=== PATIENT | female | born 1935 | race Caucasian/White ===

== ENCOUNTER 2018-10-20 11:39 | Observation (INO) | payer MEDICARE, BC ==
[2018-10-20] MEDS ORDERED: HYDROmorphone 1 MG/ML Syringe IVPUSH ONE (12:19)
[2018-10-20 12:47] LABS: ANION GAP 14.7 mmol/L (10-20)
[2018-10-20] MEDS ORDERED: methylPREDNISolone Sodium Succinate 125 MG/2 ML SDV IVPUSH ONE (13:47)
[2018-10-20] MEDS: Calcium Carbonate/Vitamin D3 1250 MG-200 Unit Tab PO SCH (18:05)
[2018-10-20] MEDS ORDERED: Albuterol 0.083% 2.5 MG/3 ML Neb Soln INH PRN (20:00)
[2018-10-20] MEDS: Metoprolol Tartrate 50 MG Tab PO SCH ×2 (20:08→20:30)
[2018-10-20] MEDS: Acetaminophen/HYDROcodone 325-5 MG Tab PO PRN (20:11)
[2018-10-20] MEDS: Dextran 70/Hypromellose/PF Ophth Soln 0.9 ML UD EYEBOTH SCH (20:13)
[2018-10-20] MEDS: Budesonide 0.5 MG/2 ML Neb Susp NEB SCH (20:21)
[2018-10-20] MEDS: Ipratropium 0.02% 0.5 MG/2.5 ML Neb Soln NEB SCH (20:21)
[2018-10-20] MEDS: Arformoterol 15 MCG/2 ML Neb Soln NEB SCH (20:21)
[2018-10-20] MEDS ORDERED: Warfarin 2.5 MG Tab PO ONE (20:30)
[2018-10-21] MEDS: Acetaminophen/HYDROcodone 325-5 MG Tab PO PRN (01:39)
[2018-10-21] MEDS: Budesonide 0.5 MG/2 ML Neb Susp NEB SCH (06:57)
[2018-10-21] MEDS: Ipratropium 0.02% 0.5 MG/2.5 ML Neb Soln NEB SCH (06:57)
[2018-10-21] MEDS: Arformoterol 15 MCG/2 ML Neb Soln NEB SCH (06:57)
[2018-10-21] MEDS ORDERED: Omeprazole 20 MG Cap.CR PO SCH (07:00)
[2018-10-21] MEDS: Calcium Carbonate/Vitamin D3 1250 MG-200 Unit Tab PO SCH (07:20)
[2018-10-21] MEDS: Dextran 70/Hypromellose/PF Ophth Soln 0.9 ML UD EYEBOTH SCH (07:22)
[2018-10-21] MEDS: Metoprolol Tartrate 50 MG Tab PO SCH (07:22)
[2018-10-21] MEDS ORDERED: Furosemide 20 MG Tab PO SCH (08:00)
[2018-10-21] MEDS ORDERED: predniSONE 5 MG Tab PO SCH (08:00)
[2018-10-21] MEDS ORDERED: Amiodarone 200 MG Tab PO SCH (08:00)
[2018-10-21] MEDS ORDERED: Aspirin 81 MG Tab.EC PO SCH (08:00)
[2018-10-21 11:29] VITALS: BP 118/36
[2018-10-21] MEDS ORDERED: HYDROmorphone 1 MG/ML Syringe IVPUSH PRN (12:47)
[2018-10-21] MEDS ORDERED: Phytonadione 100 MCG Tab PO SCH (13:15)
[2018-10-21] MEDS ORDERED: Take Home: Acetaminophen/oxyCODONE 325-5 MG, 5 Tab Pack PO ONE (13:37)
[2018-10-21] MEDS ORDERED: Warfarin 2.5 MG Tab PO SCH (20:00)
[2018-10-22] MEDS ORDERED: Warfarin 2.5 MG Tab PO SCH (20:00)
[2018-10-22] MEDS ORDERED: Simvastatin 10 MG Tab PO SCH (20:00)
--- NOTE | 2018-10-25 08:49 | EDM.PDOC ---
ED HPI GENERAL MEDICAL PROBLEM - General Chief Complaint: Back Pain or Injury Stated Complaint: ER VISIT Time Seen by Provider: 10/20/18 11:50 Source of Information: Reports: Patient, EMS History Limitations: Reports: No Limitations - History of Present Illness INITIAL COMMENTS - FREE TEXT/NARRATIVE: Patient comes in by EMS. She says that she has been having worsening back pain for the past eight days. She does have an appointment with Dr. Trent on . The patient comes in accompanied by her neighbor. I did look into her medical history and the patient has been on fentanyl patches before and also oxycodone. She is no longer on those medications currently. Patient is a chronic smoker. She also has had back pain before. Patient also seems to be quite exhausted. I will put her in extended stay in observation. Please use this note as a admitting document. I also gave the patient a shot of Solu- Medrol. I did see her the next day and she was ready to be discharged. I did check her pro time and it was over seven. I did talk to Dr. Mayfield and it was agreed that we were going to give her oral vitamin K to reverse her Coumadin and hold off on the Coumadin until she sees Dr. Trent. Patient has not had her pro time checked in a while. She had seen Dr. Trent previously earlier this month and a basic metabolic panel was recommended so did have that drawn. I did give the patient hydrocodone to bridge her to see Dr. Trent. We did double her vitamin K for Monday on her departure. She will continue her vitamin K and hold off on her Coumadin until she sees Dr. Trent. 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 Lower Back Pain Score (Numeric/FACES): 3 - Related Data Allergies Allergy/AdvReac Type Severity Reaction Status Date / Time celecoxib [From Celebrex] AdvReac Nausea Verified 10/20/18 12:08 Home Meds: Home Meds Calcium Carbonate/Vitamin D3 [Calcium 600 + D Tablet] 1 each PO BIDMEALS [History] Magnesium Oxide [Magnesium] 500 mg PO BID 08/07/15 [History] Metoprolol Tartrate [Lopressor] 50 mg PO BID 08/07/15 [History] Simvastatin [Zocor] 20 mg PO MOWEFR 08/07/15 [History] predniSONE [Prednisone] 5 mg PO DAILY 08/07/15 [History] Arformoterol [Brovana] 15 mcg NEB BID 12/24/15 [History] Budesonide [Pulmicort] 0.5 mg NEB BID 12/24/15 [History] Ipratropium [Atrovent] 0.5 mg NEB BID 12/24/15 [History] Warfarin [Coumadin] 2.5 mg PO ASDIRECTED 12/24/15 [History] Amiodarone [Cordarone] 200 mg PO DAILY 01/12/16 [History] Aspirin [Halfprin] 81 mg PO BRK 01/12/16 [History] Omeprazole [Prilosec] 20 mg PO DAILY 01/12/16 [History] Albuterol Sulfate [Proventil Hfa] 2 puff IH Q4H PRN 10/20/18 [History] Carboxymethyl/Glycerin/Poly80 [Refresh Optive Advanced Drops] 1 drop EYEBOTH BID 10/20/18 [History] Furosemide [Lasix] 30 mg PO DAILY 10/20/18 [History] Phytonadione [Vitamin K] 200 mcg PO DAILY 10/20/18 [History] Hydrocodone/Acetaminophen [Lorcet 5-325 mg Tablet] 1 - 2 tab PO Q4HR PRN #20 tablet 10/21/18 [Rx] Past Medical History HEENT History: Reports: Cataract Cardiovascular History: Reports: Afib, Heart Failure, High Cholesterol, Hypertension, Pulmonary Hypertension, PVD, Other (See Below) Other Cardiovascular History: Paroxysmal SVT. Peripheral artery disease. Valvular disease Respiratory History: Reports: COPD, Pneumonia, Recurrent Gastrointestinal History: Reports: Colon Polyp, Diverticulosis, Hiatal Hernia Genitourinary History: Reports: Urinary Incontinence, Other (See Below) Other Genitourinary History: Stage 3 Kidney disease Musculoskeletal History: Reports: RA Hematologic History: Reports: Anemia, Other (See Below) Other Hematologic History: Hypomagnesia Oncologic (Cancer) History: Reports: Bladder, Colon, Renal - Past Surgical History HEENT Surgical History: Reports: Cataract Surgery, Tonsillectomy, Other (See Below) Other HEENT Surgeries/Procedures: Chronic dry eyes. Posterior vitreous detachment GI Surgical History: Reports: Colonoscopy Other GI Surgeries/Procedures: ileostomy Social & Family History - Family History Family Medical History: Noncontributory - Tobacco Use Smoking Status *Q: Current Every Day Smoker Years of Tobacco use: 63 Packs/Tins Daily: 0.5 Second Hand Smoke Exposure: Yes - Caffeine Use Caffeine Use: Reports: Coffee, Soda - Alcohol Use Days Per Week of Alcohol Use: 1 Number of Drinks Per Day: 1 Total Drinks Per Week: 1 - Recreational Drug Use Recreational Drug Use: No ED ROS GENERAL - Review of Systems Review Of Systems: ROS reveals no pertinent complaints other than HPI. ED EXAM, UPPER BACK/NECK PAIN - Physical Exam Exam: See Below Exam Limited By: Other (Patient appears to be older than her stated age.) General Appearance: Alert, Moderate Distress, Severe Distress Cardiovascular/Respiratory: Regular Rate, Rhythm, No M/R/G, Normal Peripheral Pulses, No JVD, Normal Breath Sounds, No Respiratory Distress Back Exam: Other (Pain into the lower thoracic and upper lumbar. Limited range of motion secondary to her perception of pain. No pain going down the legs. Doesn't to be centralized. No history of trauma. No ecchymosis.) Psychiatric: Normal Affect Skin Exam: Normal Color, Warm/Dry Course - Vital Signs Last Recorded V/S: Last Vital Signs Temp 37.1 C 10/21/18 10:00 Pulse 59 L 10/21/18 10:00 Resp 16 10/21/18 10:00 BP 118/36 L 10/21/18 10:00 Pulse Ox 94 L 10/21/18 10:00 - Orders/Labs/Meds Labs: Laboratory Tests 10/20/18 10/20/18 10/20/18 Range/Units 12:19 12:23 12:23 WBC 8.3 (4.0-10.0) x10^3/uL RBC 4.76 (4.00-5.50) x10^6/uL Hgb 12.9 (12.0-16.0) g/dL Hct 41.2 (33.0-47.0) % MCV 86.6 (78.0-93.0) fL MCH 27.1 (26.0-32.0) pg MCHC 31.3 L (32.0-36.0) g/dL RDW Coeff of Caroline 16.7 H (10.0-15.0) % Plt Count 310 (130-400) x10^3/uL Neut % (Auto) 86.0 H (50.0-80.0) % Lymph % (Auto) 10.0 L (25.0-50.0) % [place] % (Auto) 3.5 (2.0-11.0) % Eos % (Auto) 0.4 (0.0-4.0) % Baso % (Auto) 0.1 L (0.2-1.2) % Sodium 142 (136-145) mmol/L Potassium 4.7 (3.5-5.1) mmol/L Chloride 104 (98-107) mmol/L Carbon Dioxide 28 (21-32) mmol/L Anion Gap 14.7 (10-20) mmol/L BUN 33 H (7-18) mg/dL Creatinine 1.9 H (0.55-1.02) mg/dL Est Cr Clr Drug Dosing 17.23 mL/min Estimated GFR (MDRD) 25 Glucose 93 (74-106) mg/dL Calcium 9.3 (8.5-10.1) mg/dL NT-Pro-B Natriuret Pep (<=450) pg/mL Urine Color Yellow (YELLOW) Urine Appearance Clear (CLEAR) Urine pH 6.0 (5.0-8.0) Ur Specific Olivia 1.015 Urine Protein Negative (NEGATIVE) mg/dL Urine Glucose (UA) Negative (NEGATIVE) mg/dL Urine Ketones Negative (NEGATIVE) mg/dL Urine Occult Blood Moderate H (NEGATIVE) Urine Nitrite Negative (NEGATIVE) Urine Bilirubin Negative (NEGATIVE) Urine Urobilinogen 0.2 (0.2) EU/dL Ur Leukocyte Esterase Negative (NEGATIVE) Urine RBC 5-10 H (NOT SEEN) /HPF Urine WBC 0-5 (NOT SEEN) /HPF Ur Squamous Epith Cells Few H (NEGATIVE) /HPF Urine Bacteria Not seen (NEGATIVE) /HPF Urine Mucus Rare H (NEGATIVE) /LPF Urine Yeast (Budding) Not seen 10/20/18 Range/Units 12:23 WBC (4.0-10.0) x10^3/uL RBC (4.00-5.50) x10^6/uL Hgb (12.0-16.0) g/dL Hct (33.0-47.0) % MCV (78.0-93.0) fL MCH (26.0-32.0) pg MCHC (32.0-36.0) g/dL RDW Coeff of Caroline (10.0-15.0) % Plt Count (130-400) x10^3/uL Neut % (Auto) (50.0-80.0) % Lymph % (Auto) (25.0-50.0) % [place] % (Auto) (2.0-11.0) % Eos % (Auto) (0.0-4.0) % Baso % (Auto) (0.2-1.2) % Sodium (136-145) mmol/L Potassium (3.5-5.1) mmol/L Chloride (98-107) mmol/L Carbon Dioxide (21-32) mmol/L Anion Gap (10-20) mmol/L BUN (7-18) mg/dL Creatinine (0.55-1.02) mg/dL Est Cr Clr Drug Dosing mL/min Estimated GFR (MDRD) Glucose (74-106) mg/dL Calcium (8.5-10.1) mg/dL NT-Pro-B Natriuret Pep 1062 H (<=450) pg/mL Urine Color (YELLOW) Urine Appearance (CLEAR) Urine pH (5.0-8.0) Ur Specific Olivia Urine Protein (NEGATIVE) mg/dL Urine Glucose (UA) (NEGATIVE) mg/dL Urine Ketones (NEGATIVE) mg/dL Urine Occult Blood (NEGATIVE) Urine Nitrite (NEGATIVE) Urine Bilirubin (NEGATIVE) Urine Urobilinogen (0.2) EU/dL Ur Leukocyte Esterase (NEGATIVE) Urine RBC (NOT SEEN) /HPF Urine WBC (NOT SEEN) /HPF Ur Squamous Epith Cells (NEGATIVE) /HPF Urine Bacteria (NEGATIVE) /HPF Urine Mucus (NEGATIVE) /LPF Urine Yeast (Budding) Meds: Medications Discontinued Medications Generic Name Dose Route Start Last Admin Trade Name Freq PRN Reason Stop Dose Admin Hydrocodone Bitart/Acetaminophen 1 - 2 tab 10/20/18 16:26 10/21/18 01:39 Lacon 325-5 Mg PO 2 tab Q4H PRN Administration Pain Albuterol 2.5 mg 10/20/18 20:00 Proventil Neb Soln INH Q4H PRN Shortness of Breath Amiodarone HCl 200 mg 10/21/18 08:00 10/21/18 07:22 Cordarone PO 200 mg DAILY PEDRO LUIS Administration Arformoterol Tartrate 15 mcg 10/20/18 20:00 10/21/18 06:57 Brovana NEB 15 mcg BIDRT PEDRO LUIS Administration Artificial Tears 0 each 10/20/18 20:00 10/21/18 07:22 Tears Naturale Free EYEBOTH 1 each BID PEDRO LUIS Administration Aspirin 81 mg 10/21/18 08:00 10/21/18 07:22 Halfprin PO 81 mg BRK PEDRO LUIS Administration Budesonide 0.5 mg 10/20/18 20:00 10/21/18 06:57 Pulmicort NEB 0.5 mg BIDRT PEDRO LUIS Administration Calcium Carbonate 1 tab 10/20/18 18:00 10/21/18 07:20 Calcium Carbonate/Vitamin D 1250 Mg-200 Unit PO 1 tab BIDMEALS PEDRO LUIS Administration Furosemide 30 mg 10/21/18 08:00 10/21/18 07:20 Lasix PO 30 mg DAILY PEDRO LUIS Administration Hydromorphone HCl 0.5 mg 10/20/18 12:19 10/20/18 12:24 Dilaudid IVPUSH 10/20/18 12:20 0.5 mg ONETIME ONE Administration Hydromorphone HCl 0.5 mg 10/21/18 12:47 10/21/18 13:13 Dilaudid IVPUSH 0.5 mg Q4H PRN Administration Pain Ipratropium Mcmillan 0.5 mg 10/20/18 20:00 10/21/18 06:57 Atrovent NEB 0.5 mg BIDRT PEDRO LUIS Administration Methylprednisolone Sodium Succinate 125 mg 10/20/18 13:47 10/20/18 13:59 Solu-Medrol IVPUSH 10/20/18 13:48 125 mg ONETIME ONE Administration Metoprolol Tartrate 50 mg 10/20/18 20:00 10/21/18 07:22 Lopressor PO 50 mg BID PEDRO LUIS Administration Omeprazole 20 mg 10/21/18 07:00 10/21/18 06:57 Omeprazole PO 20 mg ACBREAKFAST PEDRO LUIS Administration Oxycodone/Acetaminophen 1 packet 10/21/18 13:37 Take Home: Acetamin/Oxycodon 325-5 Mg, 5 Pack PO 10/21/18 13:38 ONETIME ONE Phytonadione 10 mg 10/21/18 12:29 10/21/18 13:05 Aquamephyton SUBCUT 10/21/18 12:48 Not Given ONETIME ONE Phytonadione 400 mcg 10/21/18 13:15 10/21/18 13:13 Vitamin K PO 400 mcg DAILY PEDRO LUIS Administration Prednisone 5 mg 10/21/18 08:00 10/21/18 07:22 Prednisone PO 5 mg DAILY PEDRO LUIS Administration Simvastatin 20 mg 10/22/18 20:00 Zocor PO [email or web address] [email or web address] Warfarin Sodium 1.25 mg 10/21/18 20:00 Coumadin PO [email or web address] [email or web address] Warfarin Sodium 2.5 mg 10/22/18 20:00 Coumadin PO [email or web address] [email or web address] Warfarin Sodium 1.25 mg 10/20/18 20:30 10/20/18 20:28 Coumadin PO 10/20/18 20:31 1.25 mg ONETIME ONE Administration Departure - Departure Time of Disposition: 08:50 Disposition: Refer to Observation Condition: Fair Clinical Impression: Sprain of ligaments of thoracic spine Qualifiers: Encounter type: sequela Qualified Code(s): S23.3XXS - Sprain of ligaments of thoracic spine, sequela - Discharge Information *PRESCRIPTION DRUG MONITORING PROGRAM REVIEWED*: Yes *COPY OF PRESCRIPTION DRUG MONITORING REPORT IN PATIENT SHAKILA: No
--- NOTE | 2018-11-10 20:32 | PCM.DCSUM1 ---
Discharge Summary - Hospital Course HPI Initial Comments: The patient has had fentanyl patch in the past. She is currently not on any narcotics. She does have an appointment with her primary later this week. I will give her some hydrocodone for a bridge. The patient was also found to have high INR. She will hold off on her Coumadin until she sees her primary. She will have her INR drawn at that time. She does have a neighbor that is assisting her. The patient continues to smoke. - Discharge Data Discharge Date: 10/21/18 Discharge Disposition: Home, Self-Care 01 Condition: Fair - Patient Instructions Diet: Usual Diet as Tolerated Activity: As Tolerated Driving: Do Not Drive Showering/Bathing: May Shower - Discharge Plan *PRESCRIPTION DRUG MONITORING PROGRAM REVIEWED*: Yes *COPY OF PRESCRIPTION DRUG MONITORING REPORT IN PATIENT SHAKILA: No Home Medications: Home Meds Calcium Carbonate/Vitamin D3 [Calcium 600 + D Tablet] 1 each PO BIDMEALS [History] Metoprolol Tartrate [Lopressor] 50 mg PO BID 08/07/15 [History] Simvastatin [Zocor] 20 mg PO MOWEFR 08/07/15 [History] predniSONE [Prednisone] 5 mg PO DAILY 08/07/15 [History] Arformoterol [Brovana] 15 mcg NEB Q12H 12/24/15 [History] Budesonide [Pulmicort] 0.5 mg NEB BID 12/24/15 [History] Ipratropium [Atrovent] 0.5 mg NEB BID 12/24/15 [History] Warfarin [Coumadin] 1.25 mg PO MOWEFR@0800 12/24/15 [History] Amiodarone [Cordarone] 200 mg PO DAILY 01/12/16 [History] Aspirin [Halfprin] 81 mg PO DAILY 01/12/16 [History] Omeprazole [Prilosec] 20 mg PO DAILY 01/12/16 [History] Furosemide [Lasix] 30 mg PO DAILY 10/20/18 [History] Phytonadione [Vitamin K] 200 mcg PO DAILY 10/20/18 [History] Orphenadrine [Norflex] 100 mg PO BID PRN 11/05/18 [History] Dextran 70/Hypromellose/PF [Tears [place]aturale Free Drops] 1 each EYEBOTH BID [History] Lidocaine [Aspercreme] 1 each TP DAILY 11/07/18 [History] Magnesium Oxide [Magnesium] 400 mg PO DAILY 11/07/18 [History] Ondansetron [Zofran ODT] 4 mg PO Q6H PRN 11/07/18 [History] Remove Patch 1 ea TRDERM BEDTIME 11/07/18 [History] oxyCODONE 5 mg PO Q4H PRN 11/07/18 [History] Patient Handouts: Back Pain, Adult, [id number] Forms: ED Department Discharge Referrals: Luz Marc MD [Primary Care Provider] - - Discharge Summary/Plan Comment DC Time >30 min.: No - General Info Date of Service: 11/10/18 Functional Status: Reports: Other (The patient is tolerating her pain.) - Review of Systems General: Reports: Weakness (Some). Denies: Fever, Malaise, Chills Pulmonary: Reports: No Symptoms Cardiovascular: Reports: No Symptoms Gastrointestinal: Reports: No Symptoms Musculoskeletal: Reports: Back Pain (Acute on chronic. ) Neurological: Reports: No Symptoms Psychiatric: Reports: No Symptoms - Patient Data Vitals - Most Recent: Last Vital Signs Temp 37.1 C 10/21/18 10:00 Pulse 59 L 10/21/18 10:00 Resp 16 10/21/18 10:00 BP 118/36 L 10/21/18 10:00 Pulse Ox 94 L 10/21/18 10:00 Weight - Most Recent: 51.256 kg Med Orders - Current: Current Medications Discontinued Medications Hydrocodone Bitart/Acetaminophen ([place] 325-5 Mg) 1 - 2 tab PO Q4H PRN PRN Reason: Pain Last Admin: 10/21/18 01:39 Dose: 2 tab Albuterol (Proventil Neb Soln) 2.5 mg INH Q4H PRN PRN Reason: Shortness of Breath Amiodarone HCl (Cordarone) 200 mg PO DAILY [facility] Last Admin: 10/21/18 07:22 Dose: 200 mg Arformoterol Tartrate (Brov[place]) 15 mcg NEB BIDRT [facility] Last Admin: 10/21/18 06:57 Dose: 15 mcg Artificial Tears (Tears Naturale Free) 0 each EYEBOTH BID [facility] Last Admin: 10/21/18 07:22 Dose: 1 each Aspirin (Halfprin) 81 mg PO BRK [facility] Last Admin: 10/21/18 07:22 Dose: 81 mg Budesonide (Pulmicort) 0.5 mg NEB BIDRT [facility] Last Admin: 10/21/18 06:57 Dose: 0.5 mg Calcium Carbonate (Calcium Carbonate/Vitamin D 1250 Mg-200 Unit) 1 tab PO BIDMEALS [facility] Last Admin: 10/21/18 07:20 Dose: 1 tab Furosemide (Lasix) 30 mg PO DAILY [facility] Last Admin: 10/21/18 07:20 Dose: 30 mg Hydromorphone HCl (Dilaudid) 0.5 mg IVPUSH ONETIME ONE Stop: 10/20/18 12:20 Last Admin: 10/20/18 12:24 Dose: 0.5 mg Hydromorphone HCl (Dilaudid) 0.5 mg IVPUSH Q4H PRN PRN Reason: Pain Last Admin: 10/21/18 13:13 Dose: 0.5 mg Ipratropium [place] (Atrovent) 0.5 mg NEB BIDRT [facility] Last Admin: 10/21/18 06:57 Dose: 0.5 mg Methylprednisolone Sodium Succinate (Solu-Medrol) 125 mg IVPUSH ONETIME ONE Stop: 10/20/18 13:48 Last Admin: 10/20/18 13:59 Dose: 125 mg Metoprolol Tartrate (Lopressor) 50 mg PO BID [facility] Last Admin: 10/21/18 07:22 Dose: 50 mg Omeprazole (Omeprazole) 20 mg PO ACBREAKFAST [facility] Last Admin: 10/21/18 06:57 Dose: 20 mg Oxycodone/Acetaminophen (Take Home: Acetamin/Oxycodon 325-5 Mg, 5 Pack) 1 packet PO ONETIME ONE Stop: 10/21/18 13:38 Phytonadione ([place]phy[place]) 10 mg SUBCUT ONETIME ONE Stop: 10/21/18 12:48 Last Admin: 10/21/18 13:05 Dose: Not Given Phytonadione (Vitamin K) 400 mcg PO DAILY [facility] Last Admin: 10/21/18 13:13 Dose: 400 mcg Prednisone (Prednisone) 5 mg PO DAILY [facility] Last Admin: 10/21/18 07:22 Dose: 5 mg Simvastatin (Zocor) 20 mg PO [email or web address] [facility] Warfarin Sodium (Coumadin) 1.25 mg PO [email or web address] [facility] Warfarin Sodium (Coumadin) 2.5 mg PO [email or web address] [facility] Warfarin Sodium (Coumadin) 1.25 mg PO ONETIME ONE Stop: 10/20/18 20:31 Last Admin: 10/20/18 20:28 Dose: 1.25 mg - Exam General: Reports: Alert, Oriented Lungs: Reports: Clear to Auscultation Cardiovascular: Reports: Regular Rate, Regular Rhythm Extremities: Other (She does have thoracic and lumbar pain. ROM is limited per her perception of pain. No saddle parathesia. ). No: Normal Range of Motion *Q Meaningful Use (DIS) - VTE *Q VTE Mechanical Contraindications *Q: At Risk for Falls
== END 2018-10-21 13:45 | disposition home or self-care (01) ==
LOC: VM.ED 11:39 → INTOOBSV 13:25 → VM.MS 13:25
PROVIDERS: ADMIT Physician Assistant; ATTEND Physician Assistant
DX: M54.5 Low back pain (principal); R79.1 Abnormal coagulation profile; F17.200 Nicotine dependence, unspecified, uncomplicated; I13.0 Hypertensive heart and chronic kidney disease with heart failure and stage 1 through stage 4 chronic kidney disease, or unspecified chronic kidney disease; I50.9 Heart failure, unspecified; N18.3 Chronic kidney disease, stage 3 (moderate); J44.9 Chronic obstructive pulmonary disease, unspecified; Z79.01 Long term (current) use of anticoagulants; Z79.899 Other long term (current) drug therapy
CPT/HCPCS: 36415; 80048; 81001; 83880; 85025; 85610; 87086; 94640; 96374; 96375; 96376; 99220; 99285; A9270; G0378; J1170; J2930

== ENCOUNTER 2018-11-05 16:17 | Observation (INO) | payer MEDICARE, BC ==
--- NOTE | 2018-11-05 16:23 | EDM.PDOC ---
ED HPI GENERAL MEDICAL PROBLEM - General Chief Complaint: Back Pain or Injury Stated Complaint: Low Back Pain Time Seen by Provider: 11/05/18 16:22 Source of Information: Reports: Patient, EMS, EMS Notes Reviewed, Old Records, RN, RN Notes Reviewed History Limitations: Reports: No Limitations - History of Present Illness INITIAL COMMENTS - FREE TEXT/NARRATIVE: Patient is brought to the emergency room at [facility] via EMS for worsening low back pain. The patient was originally seen in this ER on October 20, 2018 for an acute onset of low back pain. The patient did not have any imaging studies at that visit. The patient was admitted to the observation unit due to an INR of 7.7. The patient was given reversal agents for her elevated INR. The patient was discharged home the next day. The patient was seen in the [facility] on October 24, 2018 for a follow-up visit. The patient was started on a higher burst dose of prednisone, Norflex, and hydrocodone for her pain. The patient also had a lumbar x-ray which did show a new compression fracture of L1-L2 with loss of L2 endplate vertebral body. The loss at L2 appears to be new when compared to previous x-ray one year ago. The patient states today that she did have an interim fall between her last 2 clinic visits. She states that she did fall in the bathroom landing on her buttocks. The patient does not remember which day the fall happened. The patient states she merely lost her balance and fell. The patient states that she called EMS due to worsening pain and inability to move. The patient denies any bowel or bladder problems. The patient does have an ileostomy. The patient denies any head injury or trauma. The patient denies any numbness tingling or paresthesia of any extremity. The patient does live alone in her own apartment. The patient states she is usually ambulatory on her own. The patient states that her back pain today is around the L1-L2 area. She states that the pain radiates down to the coccyx. She is currently not having any sciatic pain. The patient did take 1 oxycodone prior to ambulance arrival today. The patient states that her pain is sharp and stabbing. She feels most comfortable laying on her left side. 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 Lower Back Pain Score (Numeric/FACES): 10 - Related Data Allergies Allergy/AdvReac Type Severity Reaction Status Date / Time celecoxib [From Celebrex] AdvReac Nausea Verified 11/05/18 16:41 Home Meds: Home Meds Calcium Carbonate/Vitamin D3 [Calcium 600 + D Tablet] 1 each PO BIDMEALS [History] Magnesium Oxide [Magnesium] 500 mg PO BID 08/07/15 [History] Metoprolol Tartrate [Lopressor] 50 mg PO BID 08/07/15 [History] Simvastatin [Zocor] 20 mg PO MOWEFR 08/07/15 [History] predniSONE [Prednisone] 5 mg PO DAILY 08/07/15 [History] Arformoterol [Brovana] 15 mcg NEB BID 12/24/15 [History] Budesonide [Pulmicort] 0.5 mg NEB BID 12/24/15 [History] Ipratropium [Atrovent] 0.5 mg NEB BID 12/24/15 [History] Warfarin [Coumadin] 2.5 mg PO ASDIRECTED 12/24/15 [History] Amiodarone [Cordarone] 200 mg PO DAILY 01/12/16 [History] Aspirin [Halfprin] 81 mg PO BRK 01/12/16 [History] Omeprazole [Prilosec] 20 mg PO DAILY 01/12/16 [History] Albuterol Sulfate [Proventil Hfa] 2 puff IH Q4H PRN 10/20/18 [History] Carboxymethyl/Glycerin/Poly80 [Refresh Optive Advanced Drops] 1 drop EYEBOTH BID 10/20/18 [History] Furosemide [Lasix] 30 mg PO DAILY 10/20/18 [History] Phytonadione [Vitamin K] 200 mcg PO DAILY 10/20/18 [History] Hydrocodone/Acetaminophen [Lorcet 5-325 mg Tablet] 1 - 2 tab PO Q4HR PRN #20 tablet 10/21/18 [Rx] Past Medical History HEENT History: Reports: Cataract Cardiovascular History: Reports: Afib, Heart Failure, High Cholesterol, Hypertension, Pulmonary Hypertension, PVD, Other (See Below) Other Cardiovascular History: Paroxysmal SVT. Peripheral artery disease. Valvular disease Respiratory History: Reports: COPD, Pneumonia, Recurrent Gastrointestinal History: Reports: Colon Polyp, Diverticulosis, Hiatal Hernia Genitourinary History: Reports: Urinary Incontinence, Other (See Below) Other Genitourinary History: Stage 3 Kidney disease Musculoskeletal History: Reports: RA Hematologic History: Reports: Anemia, Other (See Below) Other Hematologic History: Hypomagnesia Oncologic (Cancer) History: Reports: Bladder, Colon, Renal - Past Surgical History HEENT Surgical History: Reports: Cataract Surgery, Tonsillectomy, Other (See Below) Other HEENT Surgeries/Procedures: Chronic dry eyes. Posterior vitreous detachment GI Surgical History: Reports: Colonoscopy Other GI Surgeries/Procedures: ileostomy Social & Family History - Family History Family Medical History: Noncontributory - Caffeine Use Caffeine Use: Reports: Coffee, Soda ED ROS GENERAL - Review of Systems Review Of Systems: See Below Constitutional: Denies: Fever, Chills Respiratory: Denies: Shortness of Breath, Cough Cardiovascular: Denies: Chest Pain, Palpitations GI/Abdominal: Denies: Abdominal Pain, Nausea, Vomiting Musculoskeletal: Reports: Back Pain (lower) Skin: Reports: No Symptoms Neurological: Reports: No Symptoms ED EXAM,LOWER BACK PAIN/INJURY - Physical Exam Exam: See Below Exam Limited By: No Limitations General Appearance: Alert, Moderate Distress (due to back pain), Thin Head: Atraumatic, Normocephalic Neck: Normal Inspection, Supple, Full Range of Motion Respiratory/Chest: No Respiratory Distress, Lungs Clear, Normal Breath Sounds Cardiovascular: Normal Peripheral Pulses, Regular Rate, Rhythm GI/Abdominal: Normal Bowel Sounds, Soft, Non-Tender Back Exam: Decreased Range of Motion, Muscle Spasm, Paraspinal Tenderness Neurological: Alert Skin Exam: Warm, Dry, Intact, Normal Color Course - Vital Signs Last Recorded V/S: Last Vital Signs Temp 37.0 C 11/05/18 16:20 Pulse 75 11/05/18 16:20 Resp 20 11/05/18 16:20 BP 145/37 H 11/05/18 16:20 Pulse Ox 94 L 11/05/18 16:20 - Orders/Labs/Meds Orders: Active Orders 24 hr Category Date Time Status Admission Status [Patient Status] [ADT] Routine ADT 11/05/18 18:18 Ordered Lumbar Spine wo Cont [CT] Stat Exams 11/05/18 17:54 Taken Sodium Chloride 0.9% [Saline Flush] Med 11/05/18 16:51 Active 10 ml FLUSH ASDIRECTED PRN Peripheral IV Insertion Adult [OM.PC] Routine Oth 11/05/18 16:51 Ordered Medication Orders Sodium Chloride (Saline Flush) 10 ml FLUSH ASDIRECTED PRN PRN Reason: Keep Vein Open Last Admin: 11/05/18 17:50 Dose: 10 ml Admin: 11/05/18 17:04 Dose: 10 ml Labs: Laboratory Tests 11/05/18 11/05/18 11/05/18 Range/Units 17:00 17:00 17:00 WBC 8.9 (4.0-10.0) x10^3/uL RBC 4.17 (4.00-5.50) x10^6/uL Hgb 11.4 L D (12.0-16.0) g/dL Hct 36.2 (33.0-47.0) % MCV 86.8 (78.0-93.0) fL MCH 27.3 (26.0-32.0) pg MCHC 31.5 L (32.0-36.0) g/dL RDW Coeff of Caroline 19.1 H (10.0-15.0) % Plt Count 254 (130-400) x10^3/uL Neut % (Auto) 83.2 H (50.0-80.0) % Lymph % (Auto) 7.1 L (25.0-50.0) % [place] % (Auto) 8.5 (2.0-11.0) % Eos % (Auto) 1.1 (0.0-4.0) % Baso % (Auto) 0.1 L (0.2-1.2) % PT 31.7 H D (9.6-11.4) SEC INR 3.1 (2.0-3.5) Sodium 143 (136-145) mmol/L Potassium 4.4 (3.5-5.1) mmol/L Chloride 107 (98-107) mmol/L Carbon Dioxide 26 (21-32) mmol/L Anion Gap 14.4 (10-20) mmol/L BUN 38 H (7-18) mg/dL Creatinine 1.5 H (0.55-1.02) mg/dL Est Cr Clr Drug Dosing TNP Estimated GFR (MDRD) 33 Glucose 99 (74-106) mg/dL Calcium 9.7 (8.5-10.1) mg/dL Meds: Medications Generic Name Dose Route Start Last Admin Trade Name Zackaryq PRN Reason Stop Dose Admin Sodium Chloride 10 ml 11/05/18 16:51 11/05/18 17:50 Saline Flush FLUSH 10 ml ASDIRECTED PRN Administration Keep Vein Open Discontinued Medications Generic Name Dose Route Start Last Admin Trade Name Zackaryq PRN Reason Stop Dose Admin Diazepam 5 mg 11/05/18 17:38 11/05/18 17:49 Valium IVPUSH 11/05/18 17:39 5 mg STAT ONE Administration Fentanyl 50 mcg 11/05/18 16:51 11/05/18 17:03 Sublimaze IVPUSH 11/05/18 16:52 50 mcg ONETIME ONE Administration Departure - Departure Time of Disposition: 18:20 Disposition: Refer to Observation Condition: Fair Clinical Impression: Uncontrolled pain, Dehydration Compression fracture of L2 vertebra Qualifiers: Encounter type: initial encounter Fracture type: closed Qualified Code(s): S32.020A - Wedge compression fracture of second lumbar vertebra, initial encounter for closed fracture - Discharge Information - Problem List Review Problem List Initiated/Reviewed/Updated: Yes - My Orders Last 24 Hours: My Active Orders 11/05/18 16:51 Sodium Chloride 0.9% [Saline Flush] 10 ml FLUSH ASDIRECTED PRN Peripheral IV Insertion Adult [OM.PC] Routine 11/05/18 17:54 Lumbar Spine wo Cont [CT] Stat 11/05/18 18:18 Admission Status [Patient Status] [ADT] Routine - Assessment/Plan Admission H&P: Please use this note as an admission H&P Last 24 Hours: My Active Orders 11/05/18 16:51 Sodium Chloride 0.9% [Saline Flush] 10 ml FLUSH ASDIRECTED PRN Peripheral IV Insertion Adult [OM.PC] Routine 11/05/18 17:54 Lumbar Spine wo Cont [CT] Stat 11/05/18 18:18 Admission Status [Patient Status] [ADT] Routine Assessment:: Compression fracture L2 vertebral body Uncontrolled Pain Plan: Admit patient obs for better pain control. Consult PT. IVF for dehydration. INR normal today. Will consult Neurosurgery. I do not anticipate stay >48 hours.
[2018-11-05] MEDS ORDERED: fentaNYL 100 MCG/2 ML SDV IVPUSH ONE (16:51)
[2018-11-05] MEDS: Sodium Chloride 0.9% 10 ML Syringe FLUSH PRN ×3 (17:04→20:57)
[2018-11-05 17:22] LABS: CHLORIDE,CL 107 mmol/L (98-107); SODIUM,NA 143 mmol/L (136-145)
[2018-11-05 17:24] LABS: ANION GAP 14.4 mmol/L (10-20)
[2018-11-05] MEDS ORDERED: diazePAM 5 MG/ML MDV IVPUSH ONE (17:38)
--- NOTE | 2018-11-05 18:36 | CT ---
[id number] CT/CT Lumbar Spine WO IV EXAM: LUMBAR SPINE CT WITHOUT CONTRAST INDICATION: Low back pain. Evaluation of compression fracture. COMPARISON: October 04, [address] DISCUSSION: An acute to subacute appearing L2 compression fracture demonstrates about 50% height loss and up to 8 mm retropulsion of the superior endplate into the central canal contributing to moderate central canal stenosis. The lumbar vertebral bodies are otherwise normal in height and alignment without other fracture is identified. The fracture is new relative to October 04, 2018. Moderate degenerative disc disease is present at L5-S1 with milder changes at the remaining lumbar disc levels. Mild facet degeneration scattered throughout the lumbar spine. Overall these changes most significantly contribute to at least moderate foraminal stenoses at L5-S1. Dural ectasia is noted in the sacral foramina. Scattered atherosclerotic plaque in the aorta and its major branches with stents in both proximal common iliac arteries. Calcifications within the pancreatic head are suggestive of chronic pancreatitis. There is borderline dilation of the common bile duct mild chronic thickening of the left adrenal gland. Small nonobstructing right intrarenal calculus. IMPRESSION: 1. Acute to subacute L2 compression fracture with about 50% height loss and retropulsion of the superior endplate resulting in moderate central stenosis. Lee Downing MD 11/05/18 [id number] Thank you for allowing us to participate in the care of your patient.
[2018-11-05] MEDS ORDERED: Ondansetron 4 MG Tab.DIS PO PRN (18:45)
[2018-11-05] MEDS ORDERED: Take Home: Albuterol 6.7 GM Inhaler, 1 Inhaler Pack INH PRN (19:13)
[2018-11-05] MEDS ORDERED: Orphenadrine 100 MG Tab.ER PO PRN (19:13)
--- NOTE | 2018-11-05 19:49 | PCM.SN ---
- Free Text/Narrative Note: Neurosurgery consulted. Spoke with Dr. Aldrich. Recommendation is a TLSO brace and careful follow up. Patient is not a surgical candidate. WBAT. Physical Therapy with pain control.
[2018-11-05] MEDS ORDERED: Budesonide 0.5 MG/2 ML Neb Susp NEB SCH (20:00)
[2018-11-05] MEDS ORDERED: Simvastatin 20 MG Tab PO SCH (20:00)
[2018-11-05] MEDS ORDERED: Non-Formulary Medication 1 Each (Magnesium Oxide [Magnesium] 500 MG) PO SCH (20:00)
[2018-11-05] MEDS ORDERED: Ipratropium 0.02% 0.5 MG/2.5 ML Neb Soln NEB SCH (20:00)
[2018-11-05] MEDS: Metoprolol Tartrate 50 MG Tab PO SCH (20:50)
[2018-11-05] MEDS: Dextran 70/Hypromellose/PF Ophth Soln 0.9 ML UD EYEBOTH SCH (20:50)
[2018-11-05] MEDS: HYDROmorphone 1 MG/ML Syringe IVPUSH PRN ×2 (20:55→23:10)
[2018-11-05] MEDS ORDERED: Arformoterol 15 MCG/2 ML Neb Soln NEB SCH (22:00)
[2018-11-06] MEDS: HYDROmorphone 1 MG/ML Syringe IVPUSH PRN ×3 (01:19→08:57)
[2018-11-06] MEDS: Sodium Chloride 0.9% 10 ML Syringe FLUSH PRN ×2 (01:19→06:53)
[2018-11-06] MEDS: Arformoterol 15 MCG/2 ML Neb Soln NEB SCH ×2 (06:45→18:52)
[2018-11-06] MEDS: Omeprazole 20 MG Cap.CR PO SCH (06:45)
[2018-11-06] MEDS ORDERED: Aspirin 81 MG Tab.EC PO SCH (08:00)
--- NOTE | 2018-11-06 08:55 | PCM.PN ---
- General Info Date of Service: 11/06/18 Admission Dx/Problem (Free Text): Patient admitted for acute back pain. She does have a compression fracture to L2. Was seen here mid October and her pain was felt at that time to be chronic. Reportedly she went home and has fallen since. Has been seeing Dr. Marc at the [facility] in [place] for pain management. Came yesterday by ambulance. She needs pain control as well as OT/PT consultation.TLSO recommended by neurosurgery. Will likely need to go to swingbed or correction for continued pain control and rehab. Functional Status: Reports: Other (continues to have pain.) - Review of Systems General: Reports: No Symptoms HEENT: Reports: No Symptoms Pulmonary: Reports: Shortness of Breath Cardiovascular: Reports: No Symptoms Gastrointestinal: Reports: No Symptoms Genitourinary: Reports: No Symptoms Musculoskeletal: Reports: Back Pain Skin: Reports: No Symptoms Neurological: Reports: No Symptoms Psychiatric: Reports: No Symptoms - Patient Data Vitals - Most Recent: Last Vital Signs Temp 36.8 C 11/06/18 05:56 Pulse 67 11/06/18 05:56 Resp 18 11/06/18 05:56 BP 108/40 L 11/06/18 05:56 Pulse Ox 97 11/06/18 05:56 Weight - Most Recent: 50.349 kg I&O - Last 24 Hours: Intake & Output 11/05/18 11/06/18 11/06/18 22:59 06:59 14:59 Intake Total 100 300 Output Total 250 Balance -150 300 Lab Results Last 24 Hours: Laboratory Results - last 24 hr 11/05/18 11/05/18 11/05/18 Range/Units 17:00 17:00 17:00 WBC 8.9 (4.0-10.0) x10^3/uL RBC 4.17 (4.00-5.50) x10^6/uL Hgb 11.4 L D (12.0-16.0) g/dL Hct 36.2 (33.0-47.0) % MCV 86.8 (78.0-93.0) fL MCH 27.3 (26.0-32.0) pg MCHC 31.5 L (32.0-36.0) g/dL RDW Coeff of Caroline 19.1 H (10.0-15.0) % Plt Count 254 (130-400) x10^3/uL Neut % (Auto) 83.2 H (50.0-80.0) % Lymph % (Auto) 7.1 L (25.0-50.0) % [place] % (Auto) 8.5 (2.0-11.0) % Eos % (Auto) 1.1 (0.0-4.0) % Baso % (Auto) 0.1 L (0.2-1.2) % PT 31.7 H D (9.6-11.4) SEC INR 3.1 (2.0-3.5) Sodium 143 (136-145) mmol/L Potassium 4.4 (3.5-5.1) mmol/L Chloride 107 (98-107) mmol/L Carbon Dioxide 26 (21-32) mmol/L Anion Gap 14.4 (10-20) mmol/L BUN 38 H (7-18) mg/dL Creatinine 1.5 H (0.55-1.02) mg/dL Est Cr Clr Drug Dosing TNP Estimated GFR (MDRD) 33 Glucose 99 (74-106) mg/dL Calcium 9.7 (8.5-10.1) mg/dL Med Orders - Current: Current Medications Amiodarone HCl (Cordarone) 200 mg PO DAILY [facility] Arformoterol Tartrate (Brovana) 15 mcg NEB Q12H [facility] Last Admin: 11/06/18 06:45 Dose: 15 mcg Artificial Tears (Tears Naturale Free) 0 each EYEBOTH BID [facility] Last Admin: 11/05/18 20:50 Dose: 1 each Aspirin (Halfprin) 81 mg PO BRK [facility] Budesonide (Pulmicort) 0.5 mg NEB BID [facility] Calcium Carbonate (Calcium Carbonate/Vitamin D 1250 Mg-200 Unit) 1 tab PO BIDMEALS [facility] Furosemide (Lasix) 30 mg PO DAILY [facility] Hydromorphone HCl (Dilaudid) 0.5 mg IVPUSH Q2H PRN PRN Reason: Pain (severe 7-10) Last Admin: 11/06/18 06:52 Dose: 0.5 mg Ipratropium [place] (Atrovent) 0.5 mg NEB BID [facility] Magnesium Oxide (Magnesium Oxide) 400 mg PO BID [facility] Metoprolol Tartrate (Lopressor) 50 mg PO BID [facility] Last Admin: 11/05/18 20:50 Dose: 50 mg Omeprazole (Omeprazole) 20 mg PO ACBRK [facility] Last Admin: 11/06/18 06:45 Dose: 20 mg Ondansetron HCl (Zofran Odt) 4 mg PO Q6H PRN PRN Reason: nausea, able to take PO Orphenadrine Citrate (Norflex) 100 mg PO BID PRN PRN Reason: Spasms Last Admin: 11/05/18 20:51 Dose: 100 mg Oxycodone HCl (Oxycodone) 5 mg PO Q4H PRN PRN Reason: Pain (moderate 4-6) Phytonadione (Vitamin K) 200 mcg PO DAILY [facility] Prednisone (Prednisone) 5 mg PO DAILY [facility] Simvastatin (Zocor) 20 mg PO MoWeFr@1999 [facility] Last Admin: 11/05/18 20:51 Dose: 20 mg Sodium Chloride (Saline Flush) 10 ml FLUSH ASDIRECTED PRN PRN Reason: Keep Vein Open Last Admin: 11/06/18 06:53 Dose: 10 ml Warfarin Sodium (Coumadin) 2.5 mg PO ASDIRECTED [facility] Discontinued Medications Albuterol (Take Home: Albuterol 6.7 Gm, 1 Inh Pack) packet INH Q4H PRN PRN Reason: Dyspnea Arformoterol Tartrate (Brovana) 15 mcg NEB BIDRT [facility] Last Admin: 11/05/18 23:10 Dose: Not Given Budesonide (Pulmicort) 0.5 mg NEB BIDRT [facility] Last Admin: 11/05/18 20:49 Dose: 0.5 mg Diazepam (Valium) 5 mg IVPUSH STAT ONE Stop: 11/05/18 17:39 Last Admin: 11/05/18 17:49 Dose: 5 mg Fentanyl (Sublimaze) 50 mcg IVPUSH ONETIME ONE Stop: 11/05/18 16:52 Last Admin: 11/05/18 17:03 Dose: 50 mcg Ipratropium [place] (Atrovent) 0.5 mg NEB BIDRT [facility] Last Admin: 11/05/18 20:50 Dose: 0.5 mg Non-Formulary Medication (Magnesium Oxide [Magnesium]) 500 mg PO BID [facility] Last Admin: 11/05/18 21:02 Dose: Not Given - Exam General: Alert, Oriented, Cooperative, Mild Distress HEENT: Pupils Equal, Pupils Reactive, EOMI Neck: Supple Lungs: Crackles (bibasilar) GI/Abdominal Exam: Normal Bowel Sounds, Soft, Non-Tender, No Organomegaly, Other (ileostomy, good gas and stool output) Back Exam: Decreased Range of Motion, Vertebral Tenderness Extremities: Normal Inspection, Limited Range of Motion (due to pain in back) Skin: Warm, Dry, Intact Wound/Incisions: Healing Well Neurological: No New Focal Deficit Psy/Mental Status: Alert, Normal Affect, Normal Mood - Problem List & Annotations (1) Compression fracture of L2 vertebra SNOMED Code(s): 78508114486440922 Code(s): S32.020A - WEDGE COMPRESSION FRACTURE OF SECOND LUMBAR VERTEBRA, INIT Status: Acute Priority: Medium Current Visit: Yes Qualifiers: Encounter type: initial encounter Fracture type: closed Qualified Code(s) : S32.020A - Wedge compression fracture of second lumbar vertebra, initial encounter for closed fracture - Problem List Review Problem List Initiated/Reviewed/Updated: Yes - Assessment Assessment:: L2 compression fracture - Plan Plan:: Plan 1. Social work consultation to determine further placement. Await plan. Will contact Dr. Mirella Mayfield for transfer to swing bed or nursing facility. 2. PT/OT - TLSO brace fitting, up and ambulating 3. Pain control transition from IV to all oral as tolerated
[2018-11-06] MEDS: oxyCODONE 5 MG Tab PO PRN ×2 (09:02→16:35)
[2018-11-06] MEDS: Furosemide 20 MG Tab PO SCH (09:02)
[2018-11-06] MEDS: Magnesium Oxide 400 MG Tab PO SCH ×2 (09:03→19:00)
[2018-11-06] MEDS: Phytonadione 100 MCG Tab PO SCH (09:04)
[2018-11-06] MEDS: predniSONE 5 MG Tab PO SCH (09:07)
[2018-11-06] MEDS: Metoprolol Tartrate 50 MG Tab PO SCH ×2 (09:09→19:00)
[2018-11-06] MEDS: Calcium Carbonate/Vitamin D3 1250 MG-200 Unit Tab PO SCH ×2 (09:09→17:36)
[2018-11-06] MEDS: Amiodarone 200 MG Tab PO SCH (09:09)
[2018-11-06] MEDS: Ipratropium 0.02% 0.5 MG/2.5 ML Neb Soln NEB SCH ×2 (09:10→19:01)
[2018-11-06] MEDS: Budesonide 0.5 MG/2 ML Neb Susp NEB SCH ×2 (09:10→19:01)
[2018-11-06] MEDS: Dextran 70/Hypromellose/PF Ophth Soln 0.9 ML UD EYEBOTH SCH ×2 (09:11→19:00)
[2018-11-06 10:20] LABS: ANION GAP 14.5 mmol/L (10-20)
[2018-11-06] MEDS ORDERED: Furosemide 40 MG/4 ML VIAL IV ONE (12:03)
[2018-11-06] MEDS ORDERED: Magnesium Sulfate/Water 4 GM/100 ML BAG IV ONE (12:04)
--- NOTE | 2018-11-06 12:04 | CR ---
[id number] RAD/RAD Chest PA or AP 1V EXAM: RAD Chest PA or AP 1V INDICATION: INCREASED SHORT OF BREATH. COMPARISON: None. DISCUSSION: Cardiomediastinal silhouette is normal in size and contour. No infiltrate, effusion, pneumothorax, or edema. Pulmonary hyperinflation. Bibasilar subsegmental atelectasis and/or scarring. IMPRESSION: Pulmonary hyperinflation with bibasilar subsegmental atelectasis and/or scarring. Davion Finn DO 11/06/18 1201 Thank you for allowing us to participate in the care of your patient.
[2018-11-06] MEDS ORDERED: Magnesium Sulfate/Water 100 ML IV ONE (12:15)
[2018-11-07] MEDS: Sodium Chloride 0.9% 10 ML Syringe FLUSH PRN (00:11)
[2018-11-07] MEDS: HYDROmorphone 1 MG/ML Syringe IVPUSH PRN ×2 (00:11→11:33)
[2018-11-07] MEDS: Arformoterol 15 MCG/2 ML Neb Soln NEB SCH (06:35)
[2018-11-07] MEDS: Omeprazole 20 MG Cap.CR PO SCH (06:35)
[2018-11-07] MEDS ORDERED: Warfarin 2.5 MG Tab PO SCH (08:00)
[2018-11-07] MEDS ORDERED: Aspirin 81 MG Tab.EC PO SCH (08:00)
[2018-11-07] MEDS: Budesonide 0.5 MG/2 ML Neb Susp NEB SCH (08:54)
[2018-11-07] MEDS: Ipratropium 0.02% 0.5 MG/2.5 ML Neb Soln NEB SCH (08:54)
[2018-11-07] MEDS: Dextran 70/Hypromellose/PF Ophth Soln 0.9 ML UD EYEBOTH SCH (08:54)
[2018-11-07] MEDS: Magnesium Oxide 400 MG Tab PO SCH (08:55)
[2018-11-07] MEDS: predniSONE 5 MG Tab PO SCH (08:55)
[2018-11-07] MEDS: Furosemide 20 MG Tab PO SCH (08:55)
[2018-11-07] MEDS: Metoprolol Tartrate 50 MG Tab PO SCH (08:55)
[2018-11-07] MEDS: Phytonadione 100 MCG Tab PO SCH (08:56)
[2018-11-07] MEDS: oxyCODONE 5 MG Tab PO PRN (08:56)
[2018-11-07] MEDS: Amiodarone 200 MG Tab PO SCH (08:56)
[2018-11-07] MEDS: Calcium Carbonate/Vitamin D3 1250 MG-200 Unit Tab PO SCH (08:56)
[2018-11-07 10:31] VITALS: BP 142/49
[2018-11-07] MEDS ORDERED: Lidocaine 4% 1 each Patch TOP SCH (12:00)
--- NOTE | 2018-11-07 22:41 | PCM.DCSUM1 ---
Discharge Summary - Hospital Course Free Text/Narrative:: Patient with a compression fracture L2 back in October was admitted 10/20 observation and then home and then fell at home with worsening pain had CT showing the fracture has been to PCP x 2 and had x-rays on 10/24 showing it in the clinic also. Neurosurgery recommends TLSO brace. Decision was made to continue on swing bed for further cares. Did get 0.5 of IV dilaudid 3 x a day for pain and noraflex. Was on oxycodone at home. Pain is at least a 6 out of 10 at rest worse with movement. All other medical comorbidities are able. - Discharge Data Discharge Date: 11/07/18 Discharge Disposition: DC/Tfer W/I Hosp To Swing 61 Condition: Stable - Discharge Diagnosis/Problem(s) (1) Paroxysmal A-fib SNOMED Code(s): 819965315 ICD Code: I48.0 - PAROXYSMAL ATRIAL FIBRILLATION Status: Chronic Priority : Medium (2) Rheumatoid arthritis SNOMED Code(s): 03830522 ICD Code: M06.9 - RHEUMATOID ARTHRITIS, UNSPECIFIED Status: Chronic Priority: Medium Qualifiers: Rheumatoid arthritis location: unspecified site Rheumatoid factor presence : unspecified presence Qualified Code(s): M06.9 - Rheumatoid arthritis, unspecified (3) CAD (coronary artery disease) SNOMED Code(s): 07868783 ICD Code: I25.10 - ATHSCL HEART DISEASE OF [place] CORONARY ARTERY W/O ANG PCTRS Status: Acute (4) Compression fracture of L2 vertebra SNOMED Code(s): 07500610817000415 ICD Code: S32.020A - WEDGE COMPRESSION FRACTURE OF SECOND LUMBAR VERTEBRA, INIT Status: Acute Priority: High Qualifiers: Encounter type: initial encounter Fracture type: closed Qualified Code(s) : S32.020A - Wedge compression fracture of second lumbar vertebra, initial encounter for closed fracture (5) Uncontrolled pain SNOMED Code(s): 02601120516126995 ICD Code: R52 - PAIN, UNSPECIFIED Status: Acute - Patient Summary/Data Consults: Consultations 11/05/18 18:45 Consult to Case Management/[employer] [CONS] Routine OT Evaluation and Treatment [CONS] Routine PT Evaluation and Treatment [CONS] Routine 11/06/18 16:56 OT Evaluation and Treatment [CONS] Routine - Discharge Plan *PRESCRIPTION DRUG MONITORING PROGRAM REVIEWED*: Not Applicable *COPY OF PRESCRIPTION DRUG MONITORING REPORT IN PATIENT SHAKILA: Not Applicable Home Medications: Home Meds Calcium Carbonate/Vitamin D3 [Calcium 600 + D Tablet] 1 each PO BIDMEALS [History] Metoprolol Tartrate [Lopressor] 50 mg PO BID 08/07/15 [History] Simvastatin [Zocor] 20 mg PO MOWEFR 08/07/15 [History] predniSONE [Prednisone] 5 mg PO DAILY 08/07/15 [History] Arformoterol [Brovana] 15 mcg NEB Q12H 12/24/15 [History] Budesonide [Pulmicort] 0.5 mg NEB BID 12/24/15 [History] Ipratropium [Atrovent] 0.5 mg NEB BID 12/24/15 [History] Warfarin [Coumadin] 1.25 mg PO MOWEFR@0800 12/24/15 [History] Amiodarone [Cordarone] 200 mg PO DAILY 01/12/16 [History] Aspirin [Halfprin] 81 mg PO DAILY 01/12/16 [History] Omeprazole [Prilosec] 20 mg PO DAILY 01/12/16 [History] Furosemide [Lasix] 30 mg PO DAILY 10/20/18 [History] Phytonadione [Vitamin K] 200 mcg PO DAILY 10/20/18 [History] Orphenadrine [Norflex] 100 mg PO BID PRN 11/05/18 [History] Dextran 70/Hypromellose/PF [Tears Naturale Free Drops] 1 each EYEBOTH BID [History] Lidocaine [Aspercreme] 1 each TP DAILY 11/07/18 [History] Magnesium Oxide [Magnesium] 400 mg PO DAILY 11/07/18 [History] Ondansetron [Zofran ODT] 4 mg PO Q6H PRN 11/07/18 [History] Remove Patch 1 ea TRDERM BEDTIME 11/07/18 [History] oxyCODONE 5 mg PO Q4H PRN 11/07/18 [History] - Discharge Summary/Plan Comment DC Time >30 min.: No Discharge Summary/Plan Comment: Patient going over to swing bed for further cares and PT. Will refer to IR and arrange for an MRI. Hold coumadin just in case a procedure is planned and she also doesn't get dosed daily so we will see how things are going with the IR referral/appt and repeat labs Monday. - General Info Date of Service: 11/07/18 Functional Status: Reports: Pain Controlled, Tolerating Diet, Urinating - Review of Systems General: Reports: No Symptoms HEENT: Reports: No Symptoms Pulmonary: Reports: No Symptoms Cardiovascular: Reports: No Symptoms Gastrointestinal: Reports: No Symptoms Genitourinary: Reports: No Symptoms Musculoskeletal: Reports: Back Pain Skin: Reports: No Symptoms Neurological: Reports: Gait Disturbance (pain with walking, mild sedation from pain meds) Psychiatric: Reports: No Symptoms - Patient Data Vitals - Most Recent: Last Vital Signs Temp 97.9 F 11/07/18 10:00 Pulse 65 11/07/18 10:00 Resp 18 11/07/18 05:59 BP 142/49 H 11/07/18 10:00 Pulse Ox 93 L 11/07/18 10:00 Weight - Most Recent: 50.349 kg I&O - Last 24 hours: Intake & Output 11/07/18 11/07/18 11/07/18 06:59 14:59 22:59 Intake Total 200 240 Output Total 600 100 Balance -400 140 Med Orders - Current: Current Medications Discontinued Medications Albuterol (Take Home: Albuterol 6.7 Gm, 1 Inh Pack) packet INH Q4H PRN PRN Reason: Dyspnea Amiodarone HCl (Cordarone) 200 mg PO DAILY [facility] Last Admin: 11/07/18 08:56 Dose: 200 mg Arformoterol Tartrate (Brovana) 15 mcg NEB BIDRT [facility] Last Admin: 11/05/18 23:10 Dose: Not Given Arformoterol Tartrate (Brovana) 15 mcg NEB Q12H [facility] Last Admin: 11/07/18 06:35 Dose: 15 mcg Artificial Tears (Tears Naturale Free) 0 each EYEBOTH BID [facility] Last Admin: 11/07/18 08:54 Dose: 1 each Aspirin (Halfprin) 81 mg PO BRK [facility] Last Admin: 11/06/18 09:07 Dose: 81 mg Aspirin (Halfprin) 81 mg PO DAILY [facility] Last Admin: 11/07/18 08:55 Dose: 81 mg Budesonide (Pulmicort) 0.5 mg NEB BIDRT [facility] Last Admin: 11/05/18 20:49 Dose: 0.5 mg Budesonide (Pulmicort) 0.5 mg NEB BID [facility] Last Admin: 11/07/18 08:54 Dose: 0.5 mg Calcium Carbonate (Calcium Carbonate/Vitamin D 1250 Mg-200 Unit) 1 tab PO BIDMEALS [facility] Last Admin: 11/07/18 08:56 Dose: 1 tab Diazepam (Valium) 5 mg IVPUSH STAT ONE Stop: 11/05/18 17:39 Last Admin: 11/05/18 17:49 Dose: 5 mg Fentanyl (Sublimaze) 50 mcg IVPUSH ONETIME ONE Stop: 11/05/18 16:52 Last Admin: 11/05/18 17:03 Dose: 50 mcg Furosemide (Lasix) 30 mg PO DAILY [facility] Last Admin: 11/07/18 08:55 Dose: 30 mg Furosemide (Lasix) 40 mg IV ONETIME ONE Stop: 11/06/18 12:04 Last Admin: 11/06/18 12:39 Dose: 40 mg Hydromorphone HCl (Dilaudid) 0.5 mg IVPUSH Q2H PRN PRN Reason: Pain (severe 7-10) Last Admin: 11/07/18 11:33 Dose: 0.5 mg Magnesium Sulfate (Magnesium Sulfate 4 Gm In Water 100 Ml) 100 mls @ 25 mls/hr IV ONETIME ONE Stop: 11/06/18 16:14 Last Admin: 11/06/18 12:44 Dose: 25 mls/hr Ipratropium White (Atrovent) 0.5 mg NEB BIDRT [facility] Last Admin: 11/05/18 20:50 Dose: 0.5 mg Ipratropium White (Atrovent) 0.5 mg NEB BID [facility] Last Admin: 11/07/18 08:54 Dose: 0.5 mg Lidocaine (Aspercreme 4%) 1 each TOP DAILY [facility] Magnesium Oxide (Magnesium Oxide) 400 mg PO BID [facility] Last Admin: 11/07/18 08:55 Dose: 400 mg Metoprolol Tartrate (Lopressor) 50 mg PO BID [facility] Last Admin: 11/07/18 08:55 Dose: 50 mg Miscellaneous Information (Remove Patch) 1 ea TRDERM BEDTIME [facility] Non-Formulary Medication (Magnesium Oxide [Magnesium]) 500 mg PO BID [facility] Last Admin: 02/04/19 21:02 Dose: Not Given Omeprazole (Omeprazole) 20 mg PO ACBRK [facility] Last Admin: 11/07/18 06:35 Dose: 20 mg Ondansetron HCl (Zofran Odt) 4 mg PO Q6H PRN PRN Reason: nausea, able to take PO Orphenadrine Citrate (Norflex) 100 mg PO BID PRN PRN Reason: Spasms Last Admin: 11/05/18 20:51 Dose: 100 mg Oxycodone HCl (Oxycodone) 5 mg PO Q4H PRN PRN Reason: Pain (moderate 4-6) Last Admin: 11/07/18 08:56 Dose: 5 mg Phytonadione (Vitamin K) 200 mcg PO DAILY [facility] Last Admin: 11/07/18 08:56 Dose: 200 mcg Prednisone (Prednisone) 5 mg PO DAILY [facility] Last Admin: 11/07/18 08:55 Dose: 5 mg Simvastatin (Zocor) 20 mg PO MoWeFr@2000 [facility] Last Admin: 11/05/18 20:51 Dose: 20 mg Sodium Chloride (Saline Flush) 10 ml FLUSH ASDIRECTED PRN PRN Reason: Keep Vein Open Last Admin: 11/07/18 00:11 Dose: 10 ml Warfarin Sodium (Coumadin) 1.25 mg PO MoWeFr@0800 [facility] Last Admin: 11/07/18 08:55 Dose: 1.25 mg - Exam General: Reports: Alert, Oriented, Cooperative HEENT: Reports: Pupils Equal, Pupils Reactive Neck: Reports: Supple Lungs: Reports: Clear to Auscultation, Normal Respiratory Effort Cardiovascular: Reports: Regular Rate, Regular Rhythm, Murmurs GI/Abdominal Exam: Normal Bowel Sounds, Soft, Non-Tender Back Exam: Reports: Vertebral Tenderness (at l2-3 vertebrae area) Extremities: Non-Tender, No Pedal Edema Skin: Reports: Warm, Dry Neurological: Reports: No New Focal Deficit Psy/Mental Status: Reports: Alert, Normal Affect
== END 2018-11-07 13:45 | disposition swing bed (61) ==
LOC: VM.ED 16:17 → VM.MS 18:18
PROVIDERS: ADMIT Nurse Practitioner Family; ATTEND Nurse Practitioner Family
DX: S32.020A Wedge compression fracture of second lumbar vertebra, initial encounter for closed fracture (principal); I48.0 Paroxysmal atrial fibrillation; M06.9 Rheumatoid arthritis, unspecified; I25.10 Atherosclerotic heart disease of native coronary artery without angina pectoris; Z79.82 Long term (current) use of aspirin; Z79.01 Long term (current) use of anticoagulants; Z79.899 Other long term (current) drug therapy; W19.XXXA Unspecified fall, initial encounter; Z88.6 Allergy status to analgesic agent
CPT/HCPCS: 36415; 71045; 72131; 80048; 80053; 83735; 83880; 85025; 85610; 94640; 96374; 96375; 96376; 97161; 97165; 97530; 99219; 99225; 99285; A9270; G0378; J1170; J1940; J3010; J3475; J3360

== ENCOUNTER 2018-11-07 13:05 | Inpatient (IN) | payer MEDICARE, BC ==
[2018-11-07] MEDS ORDERED: Orphenadrine 100 MG Tab.ER PO PRN (14:43)
[2018-11-07] MEDS ORDERED: Ondansetron 4 MG Tab.DIS PO PRN (14:43)
[2018-11-07] MEDS ORDERED: ORPHENADRINE 100 MG PO PRN (14:54)
[2018-11-07] MEDS: [UNRECOGNIZED DRUG - OTHER] NAS SCH (15:42)
[2018-11-07] MEDS: Acetaminophen 500 MG Tab PO SCH ×2 (16:01→21:41)
[2018-11-07] MEDS: Lidocaine 4% 1 each Patch TOP SCH (16:02)
[2018-11-07] MEDS: Calcium Carbonate/Vitamin D3 1250 MG-200 Unit Tab PO SCH (17:39)
[2018-11-07] MEDS ORDERED: Arformoterol 15 MCG/2 ML Neb Soln NEB SCH (19:00)
[2018-11-07] MEDS ORDERED: Metoprolol Tartrate 50 MG Tab PO SCH (20:00)
[2018-11-07] MEDS ORDERED: Simvastatin 20 MG Tab PO SCH (20:00)
[2018-11-07] MEDS ORDERED: Ipratropium 0.02% 0.5 MG/2.5 ML Neb Soln NEB SCH (20:00)
[2018-11-07] MEDS ORDERED: Budesonide 0.5 MG/2 ML Neb Susp NEB SCH (20:00)
[2018-11-07] MEDS: HYDROMORPHONE 2 MG PO PRN (21:35)
[2018-11-07] MEDS: BROVANA 15 MCG IH SCH (21:36)
[2018-11-07] MEDS: BUDESONIDE 0.5 MG IH SCH (21:37)
[2018-11-07] MEDS: IPRATROPIUM 0.5 MG IH SCH (21:38)
[2018-11-07] MEDS: METOPROLOL 50 MG PO SCH (21:39)
[2018-11-07] MEDS: Magnesium Oxide 400 MG Tab PO SCH (21:39)
[2018-11-07] MEDS: SIMVASTATIN 20 MG PO SCH (21:40)
[2018-11-07] MEDS: Dextran 70/Hypromellose/PF Ophth Soln 0.9 ML UD EYEBOTH SCH (21:41)
--- NOTE | 2018-11-07 22:45 | PCM.HP ---
H&P History of Present Illness - General Date of Service: 11/07/18 (') Admit Problem/Dx: Admission Diagnosis/Problem Admission Diagnosis/Problem Compression fracture of L2 lumbar vertebra Source of Information: Patient - History of Present Illness Initial Comments - Free Text/Narative: Patient seen in ER 10/20 and admitted for acute on chronic back pain followed up in the clinic and had x-rays there on 10/24 with a L2 compression fracture. Hydrocodone and oxycodone tried for pain. Patient fell at home and returned to ER and CT confirmed the compression fracture. Neurosurgery recommends TLSO brace and therapies will work with her on swing bed for at least 2 weeks. She refused to go to [facility]. She was on IV dilaudid on acute cares. Duration of Symptoms: Reports: Week(s): - Related Data Allergies/Adverse Reactions: Allergies Allergy/AdvReac Type Severity Reaction Status Date / Time celecoxib [From Celebrex] AdvReac Nausea Verified 11/05/18 16:41 Home Medications: Home Meds Calcium Carbonate/Vitamin D3 [Calcium 600 + D Tablet] 1 each PO BIDMEALS [History] Metoprolol Tartrate [Lopressor] 50 mg PO BID 08/07/15 [History] Simvastatin [Zocor] 20 mg PO MOWEFR 08/07/15 [History] predniSONE [Prednisone] 5 mg PO DAILY 08/07/15 [History] Arformoterol [Brovana] 15 mcg NEB Q12H 12/24/15 [History] Budesonide [Pulmicort] 0.5 mg NEB BID 12/24/15 [History] Ipratropium [Atrovent] 0.5 mg NEB BID 12/24/15 [History] Warfarin [Coumadin] 1.25 mg PO MOWEFR@0800 12/24/15 [History] Amiodarone [Cordarone] 200 mg PO DAILY 01/12/16 [History] Aspirin [Halfprin] 81 mg PO DAILY 01/12/16 [History] Omeprazole [Prilosec] 20 mg PO DAILY 01/12/16 [History] Furosemide [Lasix] 30 mg PO DAILY 10/20/18 [History] Phytonadione [Vitamin K] 200 mcg PO DAILY 10/20/18 [History] Orphenadrine [Norflex] 100 mg PO BID PRN 11/05/18 [History] Dextran 70/Hypromellose/PF [Tears Naturale Free Drops] 1 each EYEBOTH BID [History] Lidocaine [Aspercreme] 1 each TP DAILY 11/07/18 [History] Magnesium Oxide [Magnesium] 400 mg PO DAILY 11/07/18 [History] Ondansetron [Zofran ODT] 4 mg PO Q6H PRN 11/07/18 [History] Remove Patch 1 ea TRDERM BEDTIME 11/07/18 [History] oxyCODONE 5 mg PO Q4H PRN 11/07/18 [History] Past Medical History HEENT History: Reports: Cataract Cardiovascular History: Reports: Afib, Heart Failure, High Cholesterol, Hypertension, Pulmonary Hypertension, PVD, Other (See Below) Other Cardiovascular History: Paroxysmal SVT. Peripheral artery disease. Valvular disease Respiratory History: Reports: COPD, Pneumonia, Recurrent Gastrointestinal History: Reports: Colon Polyp, Diverticulosis, Hiatal Hernia Genitourinary History: Reports: Urinary Incontinence, Other (See Below) Other Genitourinary History: Stage 3 Kidney disease Musculoskeletal History: Reports: RA Hematologic History: Reports: Anemia, Other (See Below) Other Hematologic History: Hypomagnesia Oncologic (Cancer) History: Reports: Bladder, Colon, Renal - Past Surgical History HEENT Surgical History: Reports: Cataract Surgery, Tonsillectomy, Other (See Below) Other HEENT Surgeries/Procedures: Chronic dry eyes. Posterior vitreous detachment GI Surgical History: Reports: Colonoscopy Other GI Surgeries/Procedures: ileostomy Social & Family History - Family History Family Medical History: Noncontributory - Caffeine Use Caffeine Use: Reports: Coffee, Soda H&P Review of Systems - Review of Systems: Review Of Systems: See Below General: Reports: No Symptoms HEENT: Reports: No Symptoms Pulmonary: Reports: No Symptoms Cardiovascular: Reports: No Symptoms Gastrointestinal: Reports: No Symptoms Genitourinary: Reports: No Symptoms Musculoskeletal: Reports: Back Pain Skin: Reports: No Symptoms Psychiatric: Reports: No Symptoms Neurological: Reports: No Symptoms Hematologic/Lymphatic: Reports: No Symptoms Immunologic: Reports: No Symptoms Exam - Exam Exam: See Below - Vital Signs Vital Signs: Last Vital Signs Temp 98.6 F 11/07/18 21:59 Pulse 56 L 11/07/18 21:59 Resp 19 11/07/18 21:59 BP 111/47 L 11/07/18 21:59 Pulse Ox 97 11/07/18 21:59 - Exam General: Alert, Oriented Neck: Supple, Trachea Midline Lungs: Clear to Auscultation, Normal Respiratory Effort Cardiovascular: Irregular Rhythm GI/Abdominal Exam: Normal Bowel Sounds, Soft, Non-Tender Back Exam: Vertebral Tenderness Extremities: Normal Inspection Skin: Warm, Dry, Intact Neuro Extensive - Mental Status: Alert, Oriented x3 Psychiatric: Alert, Normal Affect - Problem List (1) Emphysema lung SNOMED Code(s): 14344826 ICD Code: J43.9 - EMPHYSEMA, UNSPECIFIED Status: Chronic Priority: Medium Current Visit: Yes Qualifiers: Emphysema type: unspecified Qualified Code(s): J43.9 - Emphysema, unspecified (2) CKD (chronic kidney disease) SNOMED Code(s): 395597165 ICD Code: N18.9 - CHRONIC KIDNEY DISEASE, UNSPECIFIED Status: Chronic Priority: Medium Current Visit: Yes Qualifiers: Chronic kidney disease stage: stage 3 (moderate) Qualified Code(s): N18.3 - Chronic kidney disease, stage 3 (moderate) (3) CAD (coronary artery disease) SNOMED Code(s): 91828219 ICD Code: I25.10 - ATHSCL HEART DISEASE OF [place] CORONARY ARTERY W/O ANG PCTRS Status: Chronic Priority: Medium Current Visit: No Qualifiers: Coronary Disease-Associated Artery/Lesion type: [place] artery [place] vs. transplanted heart: [place] heart Associated angina: without angina Qualified Code(s): I25.10 - Atherosclerotic heart disease of [place] coronary artery without angina pectoris (4) Compression fracture of L2 vertebra SNOMED Code(s): 19934494028367581 ICD Code: S32.020A - WEDGE COMPRESSION FRACTURE OF SECOND LUMBAR VERTEBRA, INIT Status: Acute Priority: High Current Visit: Yes Qualifiers: Encounter type: initial encounter Fracture type: closed Qualified Code(s) : S32.020A - [place] compression fracture of second lumbar vertebra, initial encounter for closed fracture (5) Uncontrolled pain SNOMED Code(s): 28231927300320979 ICD Code: R52 - PAIN, UNSPECIFIED Status: Acute Current Visit: No (6) Paroxysmal A-fib SNOMED Code(s): 230701584 ICD Code: I48.0 - PAROXYSMAL ATRIAL FIBRILLATION Status: Chronic Priority : Medium Current Visit: No Problem List Initiated/Reviewed/Updated: Yes Orders Last 24hrs: Active Orders 24 hr Category Date Time Status Patient Status [ADT] Routine ADT 11/07/18 13:45 Active Antiembolic Devices [RC] 08, Care 11/07/18 14:58 Active Intake and Output [RC] QSHIFT Care 11/07/18 14:43 Active Oxygen Therapy Adult [Oxygen Therapy, ED] [RC] .PRN Care 11/07/18 14:43 Active Oxygen Therapy [RC] 08, Care 11/07/18 14:43 Active RT Aerosol Therapy [RC] 07, Care 11/07/18 14:43 Active Up With Assistance [RC] ASDIRECTED Care 11/07/18 14:43 Active VTE/DVT Education [RC] .PRN Care 11/07/18 14:43 Active Vital Signs [RC] 06,14,22 Care 11/07/18 14:58 Active Consult to Case Management/[employer]liance [employer] Counter Clerk [CONS] Cons 11/07/18 14:43 Active Routine OT Evaluation and Treatment [CONS] Routine Cons 11/07/18 14:43 Active OT Evaluation and Treatment [CONS] Routine Cons 11/07/18 14:43 Active PT Evaluation and Treatment [CONS] Routine Cons 11/07/18 14:43 Active Heart Healthy Diet [DIET] Diet 11/07/18 Breakfast Active CBC WITH AUTO DIFF [HEME] AM Lab 11/09/18 05:15 Ordered COMPREHENSIVE METABOLIC PN,CMP [CHEM] AM Lab 11/09/18 05:15 Ordered INR,PT,PROTHROMBIN TIME [COAG] Routine Lab 11/09/18 07:00 Ordered MG [MAGNESIUM] [CHEM] Routine Lab 11/09/18 07:00 Ordered Acetaminophen [Tylenol Extra Strength] Med 11/07/18 14:57 Active 500 mg PO TID Amiodarone. Med 11/08/18 08:00 Active 200 mg PO DAILY Aspirin [Halfprin] Med 11/08/18 08:00 Active 81 mg PO DAILY Brovana. Med 11/07/18 20:00 Active 15 mcg IH BIDRT Budesonide. Med 11/07/18 20:00 Active 0.5 mg IH BIDRT Calcitonin ([place]) [Miacalcin Nasal [place]] Med 11/07/18 15:00 Active 0 ml KEN DAILY Calcium Carbonate/Vitamin D3 [Calcium Carbonate/Vitamin Med 11/07/18 18:00 Active D 1250 MG-200 Unit] 1 tab PO BIDMEALS Dextran 70/Hypromellose/PF [Tears Naturale Free] Med 11/07/18 20:00 Active 0 each EYEBOTH BID Furosemide. Med 11/08/18 08:00 Active 30 mg PO DAILY HYDROmorphone [Dilaudid] Med 11/07/18 14:59 Active 2 mg PO Q4H PRN Ipratropium. Med 11/07/18 20:00 Active 0.5 mg IH BIDRT Lidocaine 4% [Aspercreme 4%] Med 11/07/18 16:00 Active 1 each TOP DAILY Magnesium Oxide Med 11/07/18 20:00 Active 400 mg PO BID Metoprolol. Med 11/07/18 20:00 Active 50 mg PO BID Omeprazole. Med 11/08/18 07:00 Active 20 mg PO ACBREAKFAST Ondansetron [Zofran ODT] Med 11/07/18 14:43 Active 4 mg PO Q6H PRN Orphenadrine. Med 11/07/18 14:54 Active 100 mg PO BID PRN Phytonadione [Vitamin K] Med 11/08/18 08:00 Active 200 mcg PO DAILY Prednisone. Med 11/08/18 08:00 Active 5 mg PO DAILY Remove Patch Med 11/07/18 20:00 Active 1 ea TRDERM BEDTIME Simvastatin. Med 11/07/18 20:00 Active 20 mg PO MOWEFR@2000 Sodium Chloride 0.9% [Saline Flush] Med 11/07/18 14:43 Active 10 ml FLUSH ASDIRECTED PRN Antiembolic Hose [OM.PC] Routine Oth 11/07/18 14:58 Ordered Code Status [Resuscitation Status] Routine Resus Stat 11/07/18 14:47 Ordered Medication Orders Acetaminophen (Tylenol Extra Strength) 500 mg PO TID [facility] Last Admin: 11/07/18 21:41 Dose: 500 mg Admin: 11/07/18 16:01 Dose: 500 mg Artificial Tears (Tears Naturale Free) 0 each EYEBOTH BID [facility] Last Admin: 11/07/18 21:41 Dose: 1 each Aspirin (Halfprin) 81 mg PO DAILY [facility] Calcitonin [place] (Miacalcin Nasal [place]) 0 ml KEN DAILY [facility] Last Admin: 11/07/18 15:42 Dose: Calcium Carbonate (Calcium Carbonate/Vitamin D 1250 Mg-200 Unit) 1 tab PO BIDMEALS [facility] Last Admin: 11/07/18 17:39 Dose: 1 tab Hydromorphone HCl (Dilaudid) 2 mg PO Q4H PRN PRN Reason: Pain Lidocaine (Aspercreme 4%) 1 each TOP DAILY [facility] Last Admin: 11/07/18 16:02 Dose: 1 each Magnesium Oxide (Magnesium Oxide) 400 mg PO BID [facility] Last Admin: 11/07/18 21:39 Dose: 400 mg Miscellaneous Information (Remove Patch) 1 ea TRDERM BEDTIME [facility] Last Admin: 11/07/18 21:40 Dose: 1 ea Amiodarone. 200 Mg 200 mg PO DAILY [facility] Brovana. 15 Mcg 15 mcg IH BIDRT [facility] Last Admin: 11/07/18 21:36 Dose: 15 mcg Budesonide. 0.5 Mg 0.5 mg IH BIDRT [facility] Last Admin: 11/07/18 21:37 Dose: 0.5 mg Furosemide. 30 Mg 30 mg PO DAILY [facility] Ipratropium. 0.5 Mg 0.5 mg IH BIDRT [facility] Last Admin: 11/07/18 21:38 Dose: 0.5 mg Metoprolol. 50 Mg 50 mg PO BID [facility] Last Admin: 11/07/18 21:39 Dose: 50 mg Omeprazole. 20 Mg 20 mg PO ACBREAKFAST [facility] Orphenadrine. 100 Mg 100 mg PO BID PRN PRN Reason: Spasms Prednisone. 5 Mg 5 mg PO DAILY [facility] Simvastatin. 20 Mg 20 mg PO [email or web address]@1999 [facility] Last Admin: 11/07/18 21:40 Dose: 20 mg Ondansetron HCl (Zofran Odt) 4 mg PO Q6H PRN PRN Reason: nausea, able to take PO Phytonadione (Vitamin K) 200 mcg PO DAILY [facility] Sodium Chloride (Saline Flush) 10 ml FLUSH ASDIRECTED PRN PRN Reason: Keep Vein Open Assessment/Plan Comment:: L2 compression fracture Change dilaudid to oral Schedule tylenol lidoderm patch PT and TLSO brace IR referral placed they will decide to schedule after her MRI Monday Up in the halls on coumadin so no DVT prophylaxis coumadin on hold in case she needs a procedure she tends to run high and require very low doses but would restart Monday if not needing an IR procedure INR and labs Monday
[2018-11-08] MEDS: IPRATROPIUM 0.5 MG IH SCH ×2 (06:25→20:17)
[2018-11-08] MEDS: BUDESONIDE 0.5 MG IH SCH ×2 (06:25→20:17)
[2018-11-08] MEDS: Omeprazole 20 MG Cap.CR PO SCH (06:25)
[2018-11-08] MEDS: BROVANA 15 MCG IH SCH ×2 (06:26→20:17)
[2018-11-08] MEDS: HYDROMORPHONE 2 MG PO PRN (06:37)
[2018-11-08] MEDS ORDERED: Omeprazole 20 MG Cap.CR PO SCH ×2 (07:00)
[2018-11-08] MEDS ORDERED: predniSONE 5 MG Tab PO SCH (08:00)
[2018-11-08] MEDS ORDERED: Furosemide 20 MG Tab PO SCH (08:00)
[2018-11-08] MEDS ORDERED: Amiodarone 200 MG Tab PO SCH (08:00)
[2018-11-08] MEDS: Aspirin 81 MG Tab.EC PO SCH (08:26)
[2018-11-08] MEDS: Lidocaine 4% 1 each Patch TOP SCH (08:26)
[2018-11-08] MEDS: Calcium Carbonate/Vitamin D3 1250 MG-200 Unit Tab PO SCH ×2 (08:27→20:19)
[2018-11-08] MEDS: Phytonadione 100 MCG Tab PO SCH (08:27)
[2018-11-08] MEDS: Magnesium Oxide 400 MG Tab PO SCH ×2 (08:27→20:16)
[2018-11-08] MEDS: Acetaminophen 500 MG Tab PO SCH ×3 (08:27→20:16)
[2018-11-08] MEDS: FUROSEMIDE PO SCH (08:29)
[2018-11-08] MEDS: AMIODARONE 200 MG PO SCH (08:29)
[2018-11-08] MEDS: PREDNISONE 5 MG PO SCH (08:30)
[2018-11-08] MEDS: METOPROLOL 50 MG PO SCH ×2 (08:30→20:16)
[2018-11-08] MEDS: Dextran 70/Hypromellose/PF Ophth Soln 0.9 ML UD EYEBOTH SCH ×2 (08:33→20:17)
[2018-11-08] MEDS: [UNRECOGNIZED DRUG - OTHER] NAS SCH (08:55)
[2018-11-09] MEDS: HYDROMORPHONE 2 MG PO PRN ×3 (02:34→18:21)
[2018-11-09] MEDS: Sodium Chloride 0.9% 10 ML Syringe FLUSH PRN ×2 (02:38→20:46)
[2018-11-09] MEDS: Omeprazole 20 MG Cap.CR PO SCH (06:07)
[2018-11-09] MEDS: BROVANA 15 MCG IH SCH ×2 (07:24→20:45)
[2018-11-09] MEDS: BUDESONIDE 0.5 MG IH SCH ×2 (07:24→20:45)
[2018-11-09] MEDS: IPRATROPIUM 0.5 MG IH SCH ×2 (07:24→20:45)
[2018-11-09 07:46] LABS: ANION GAP 9.1 mmol/L (10-20)
[2018-11-09] MEDS ORDERED: Warfarin 2.5 MG Tab PO SCH (08:00)
[2018-11-09] MEDS: Lidocaine 4% 1 each Patch TOP SCH (08:36)
[2018-11-09] MEDS: Acetaminophen 500 MG Tab PO SCH (08:37)
[2018-11-09] MEDS: Dextran 70/Hypromellose/PF Ophth Soln 0.9 ML UD EYEBOTH SCH ×2 (08:37→20:46)
[2018-11-09] MEDS: Magnesium Oxide 400 MG Tab PO SCH ×2 (08:37→20:46)
[2018-11-09] MEDS: Aspirin 81 MG Tab.EC PO SCH (08:37)
[2018-11-09] MEDS: Calcium Carbonate/Vitamin D3 1250 MG-200 Unit Tab PO SCH ×2 (08:37→18:21)
[2018-11-09] MEDS: Phytonadione 100 MCG Tab PO SCH (08:37)
[2018-11-09] MEDS: METOPROLOL 50 MG PO SCH ×2 (08:38→20:46)
[2018-11-09] MEDS: AMIODARONE 200 MG PO SCH (08:39)
[2018-11-09] MEDS: [UNRECOGNIZED DRUG - OTHER] NAS SCH (08:39)
[2018-11-09] MEDS: PREDNISONE 5 MG PO SCH (08:39)
[2018-11-09] MEDS: FUROSEMIDE PO SCH (08:39)
[2018-11-09] MEDS: ENOXAPARIN 30 MG/0.3 ML SUBCUT SCH (11:03)
[2018-11-09] MEDS: SIMVASTATIN 20 MG PO SCH (20:46)
--- NOTE | 2018-11-09 21:13 | PCM.SN ---
- Free Text/Narrative Note: Start Lovenox for DVT prophylaxis, hold coumadin but restart if no procedures is planned which will be decided after her MRI Monday. LFTs did increase we will repeat tomorrow, unsure why we will change tylenol to prn but she was only on 1.5 grams daily. Consider a RUQ US if needed.
[2018-11-10] MEDS: HYDROMORPHONE 2 MG PO PRN ×2 (05:27→23:31)
[2018-11-10] MEDS: Omeprazole 20 MG Cap.CR PO SCH ×2 (05:29→08:33)
[2018-11-10] MEDS: BUDESONIDE 0.5 MG IH SCH ×2 (06:37→20:34)
[2018-11-10] MEDS: BROVANA 15 MCG IH SCH ×2 (06:37→20:33)
[2018-11-10] MEDS: IPRATROPIUM 0.5 MG IH SCH ×2 (06:37→20:35)
[2018-11-10] MEDS: Magnesium Oxide 400 MG Tab PO SCH ×2 (08:32→20:33)
[2018-11-10] MEDS: Dextran 70/Hypromellose/PF Ophth Soln 0.9 ML UD EYEBOTH SCH ×2 (08:32→20:33)
[2018-11-10] MEDS: ENOXAPARIN 30 MG/0.3 ML SUBCUT SCH (08:32)
[2018-11-10] MEDS: Aspirin 81 MG Tab.EC PO SCH (08:32)
[2018-11-10] MEDS: Calcium Carbonate/Vitamin D3 1250 MG-200 Unit Tab PO SCH ×2 (08:32→17:44)
[2018-11-10] MEDS: [UNRECOGNIZED DRUG - OTHER] NAS SCH (08:33)
[2018-11-10] MEDS: Lidocaine 4% 1 each Patch TOP SCH (08:34)
[2018-11-10] MEDS: METOPROLOL 50 MG PO SCH ×2 (08:40→20:38)
[2018-11-10] MEDS: PREDNISONE 5 MG PO SCH (08:40)
[2018-11-10] MEDS: FUROSEMIDE PO SCH (08:41)
[2018-11-10] MEDS: Phytonadione 100 MCG Tab PO SCH (08:41)
[2018-11-10] MEDS: AMIODARONE 200 MG PO SCH (08:42)
[2018-11-10] MEDS: Acetaminophen 500 MG Tab PO PRN ×2 (11:07→17:44)
[2018-11-11] MEDS: HYDROMORPHONE 2 MG PO PRN ×2 (05:45→10:41)
[2018-11-11] MEDS: IPRATROPIUM 0.5 MG IH SCH ×2 (05:47→07:03)
[2018-11-11] MEDS: BUDESONIDE 0.5 MG IH SCH (07:04)
[2018-11-11] MEDS: BROVANA 15 MCG IH SCH (07:04)
[2018-11-11] MEDS: Omeprazole 20 MG Cap.CR PO SCH (08:12)
[2018-11-11] MEDS: PREDNISONE 5 MG PO SCH (08:12)
[2018-11-11] MEDS: Lidocaine 4% 1 each Patch TOP SCH (08:13)
[2018-11-11] MEDS: AMIODARONE 200 MG PO SCH (08:13)
[2018-11-11] MEDS: Magnesium Oxide 400 MG Tab PO SCH (08:13)
[2018-11-11] MEDS: Phytonadione 100 MCG Tab PO SCH (08:13)
[2018-11-11] MEDS: Aspirin 81 MG Tab.EC PO SCH (08:13)
[2018-11-11] MEDS: Calcium Carbonate/Vitamin D3 1250 MG-200 Unit Tab PO SCH (08:13)
[2018-11-11] MEDS: ENOXAPARIN 30 MG/0.3 ML SUBCUT SCH (08:14)
[2018-11-11] MEDS: METOPROLOL 50 MG PO SCH (08:14)
[2018-11-11] MEDS: [UNRECOGNIZED DRUG - OTHER] NAS SCH (08:15)
[2018-11-11] MEDS: FUROSEMIDE PO SCH (08:15)
[2018-11-11] MEDS: Dextran 70/Hypromellose/PF Ophth Soln 0.9 ML UD EYEBOTH SCH (08:17)
[2018-11-11] MEDS ORDERED: Albuterol/Ipratropium 3.0-0.5 MG/3 ML Neb Soln ONE ×2 (10:29→10:50)
[2018-11-11 10:36] VITALS: BP 96/48
--- NOTE | 2018-11-11 11:27 | PCM.SN ---
- Free Text/Narrative Note: Called by nursing due to change in patient status this morning. Abruptly around 10:15, she began struggling to breath. She appeared anxious and short of breath. This was shortly after nursing had assisted her back to bed after she had gone to the bathroom. At the time of my arrival, the patient appeared in acute respiratory distress. She was tachypneic, retracting, and only able to speak in 1 word phrases. Lung sounds overall clear. Heart initially with RRR but then to severe tachycardia with irregular rhythm. Labs and EKG ordered stat. Patient's son at bedside was able to call patient's son who is POA and I spoke with him about the patient's status. He confirmed that she is DNR/DNI. He was ok with a trial of BiPap, which was initiated while awaiting labs. The BiPap was applied but patient's condition worsened instead of improved. It was determined that her heart was no longer beating. I spoke to her POA again and he confirmed that we could remove the BiPap. The BiPap was removed and agonal breaths were noted but still no cardiac activity. Time of pronounced at 11 :15 am. Labs were cancelled. Condolences offered to patient's family.
--- NOTE | 2018-11-11 11:42 | PCM.DCSUM1 ---
Discharge Summary - Hospital Course Brief History: Ms. Estrada is an 83 yo female who was admitted to swing bed for ongoing therapies and pain control after sustaining compression fractures. - Discharge Data Discharge Date: 11/11/18 Discharge Disposition: 20 Condition: Good - Discharge Diagnosis/Problem(s) (1) Respiratory failure SNOMED Code(s): 796579671 ICD Code: J96.90 - RESPIRATORY FAILURE, UNSP, UNSP W HYPOXIA OR HYPERCAPNIA Status: Acute Current Visit: Yes (2) Compression fracture of L2 vertebra SNOMED Code(s): 44171466087218545 ICD Code: S32.020A - WEDGE COMPRESSION FRACTURE OF SECOND LUMBAR VERTEBRA, INIT Status: Acute Priority: High Current Visit: Yes Qualifiers: Encounter type: initial encounter Fracture type: closed Qualified Code(s) : S32.020A - Wedge compression fracture of second lumbar vertebra, initial encounter for closed fracture (3) CKD (chronic kidney disease) SNOMED Code(s): 625992609 ICD Code: N18.9 - CHRONIC KIDNEY DISEASE, UNSPECIFIED Status: Chronic Priority: Medium Current Visit: Yes Qualifiers: Chronic kidney disease stage: stage 3 (moderate) Qualified Code(s): N18.3 - Chronic kidney disease, stage 3 (moderate) (4) Emphysema lung SNOMED Code(s): 49073941 ICD Code: J43.9 - EMPHYSEMA, UNSPECIFIED Status: Chronic Priority: Medium Current Visit: Yes Qualifiers: Emphysema type: unspecified Qualified Code(s): J43.9 - Emphysema, unspecified (5) Atrial fibrillation with RVR SNOMED Code(s): 977554463741349 ICD Code: I48.91 - UNSPECIFIED ATRIAL FIBRILLATION Status: Acute Current Visit: No (6) CAD (coronary artery disease) SNOMED Code(s): 64142106 ICD Code: I25.10 - ATHSCL HEART DISEASE OF [place] CORONARY ARTERY W/O ANG PCTRS Status: Chronic Priority: Medium Current Visit: No Qualifiers: Coronary Disease-Associated Artery/Lesion type: [place] artery Tribe vs. transplanted heart: [place] heart Associated angina: without angina Qualified Code(s): I25.10 - Atherosclerotic heart disease of [place] coronary artery without angina pectoris - Patient Summary/Data Operative Procedure(s) Performed: none Complications: none Consults: Consultations 11/07/18 14:43 Consult to Case Management/Supervisor Knitting [CONS] Routine OT Evaluation and Treatment [CONS] Routine OT Evaluation and Treatment [CONS] Routine PT Evaluation and Treatment [CONS] Routine Labs Pending at D/C: none Recommended Follow-up Testing/Procedures: none Planned Operative Procedure(s) after DC: none Hospital Course: Patient was admitted for therapies and pain control. She was doing well up until the morning of 11/11. Please see separate progress note from today for details. She had sudden onset respiratory distress around 10:15 am. Despite interventions, she went into cardiac arrest and was pronounced at 11: 15 am. - Discharge Plan Home Medications: Home Meds Calcium Carbonate/Vitamin D3 [Calcium 600 + D Tablet] 1 each PO BIDMEALS [History] Metoprolol Tartrate [Lopressor] 50 mg PO BID 08/07/15 [History] Simvastatin [Zocor] 20 mg PO MOWEFR 08/07/15 [History] predniSONE [Prednisone] 5 mg PO DAILY 08/07/15 [History] Arformoterol [Brovana] 15 mcg NEB Q12H 12/24/15 [History] Budesonide [Pulmicort] 0.5 mg NEB BID 12/24/15 [History] Ipratropium [Atrovent] 0.5 mg NEB BID 12/24/15 [History] Warfarin [Coumadin] 1.25 mg PO MOWEFR@0800 12/24/15 [History] Amiodarone [Cordarone] 200 mg PO DAILY 01/12/16 [History] Aspirin [Halfprin] 81 mg PO DAILY 01/12/16 [History] Omeprazole [Prilosec] 20 mg PO DAILY 01/12/16 [History] Furosemide [Lasix] 30 mg PO DAILY 10/20/18 [History] Phytonadione [Vitamin K] 200 mcg PO DAILY 10/20/18 [History] Orphenadrine [Norflex] 100 mg PO BID PRN 11/05/18 [History] Dextran 70/Hypromellose/PF [Tears Naturale Free Drops] 1 each EYEBOTH BID [History] Lidocaine [Aspercreme] 1 each TP DAILY 11/07/18 [History] Magnesium Oxide [Magnesium] 400 mg PO DAILY 11/07/18 [History] Ondansetron [Zofran ODT] 4 mg PO Q6H PRN 11/07/18 [History] Remove Patch 1 ea TRDERM BEDTIME 11/07/18 [History] oxyCODONE 5 mg PO Q4H PRN 11/07/18 [History] - Discharge Summary/Plan Comment DC Time >30 min.: No - Patient Data Vitals - Most Recent: Last Vital Signs Temp 37.3 C 11/11/18 10:33 Pulse 107 H 11/11/18 10:33 Resp 48 H 11/11/18 10:33 BP 96/48 L 11/11/18 10:33 Pulse Ox 84 L 11/11/18 10:33 Weight - Most Recent: 50.349 kg I&O - Last 24 hours: Intake & Output 11/10/18 11/11/18 11/11/18 22:59 06:59 14:59 Intake Total 100 180 Balance 100 180 Med Orders - Current: Current Medications Acetaminophen (Tylenol Extra Strength) 500 mg PO TID PRN PRN Reason: Pain Last Admin: 11/10/18 17:44 Dose: 500 mg Artificial Tears (Tears Naturale Free) 0 each EYEBOTH BID [facility] Last Admin: 11/11/18 08:17 Dose: 1 each Aspirin (Halfprin) 81 mg PO DAILY [facility] Last Admin: 11/11/18 08:13 Dose: 81 mg Calcitonin [place] (Miacalcin Nasal [place]) 0 ml KEN DAILY [facility] Last Admin: 11/11/18 08:15 Dose: 1 spray Calcium Carbonate (Calcium Carbonate/Vitamin D 1250 Mg-200 Unit) 1 tab PO BIDMEALS [facility] Last Admin: 11/11/18 08:13 Dose: 1 tab Enoxaparin Sodium (Lovenox) 30 mg SUBCUT Q24H [facility] Last Admin: 11/11/18 08:14 Dose: 30 mg Hydromorphone HCl (Dilaudid) 2 mg PO Q4H PRN PRN Reason: Pain Last Admin: 11/11/18 10:41 Dose: 2 mg Lidocaine (Aspercreme 4%) 1 each TOP DAILY [facility] Last Admin: 11/11/18 08:13 Dose: 1 each Magnesium Oxide (Magnesium Oxide) 400 mg PO BID [facility] Last Admin: 11/11/18 08:13 Dose: 400 mg Miscellaneous Information (Remove Patch) 1 ea TRDERM BEDTIME [facility] Last Admin: 11/10/18 20:40 Dose: 1 ea Amiodarone. 200 Mg 200 mg PO DAILY [facility] Last Admin: 11/11/18 08:13 Dose: 200 mg Brovana. 15 Mcg 15 mcg IH BIDRT [facility] Last Admin: 11/11/18 07:04 Dose: 15 mcg Budesonide. 0.5 Mg 0.5 mg IH BIDRT [facility] Last Admin: 11/11/18 07:04 Dose: 0.5 mg Furosemide. 30 Mg 30 mg PO DAILY [facility] Last Admin: 11/11/18 08:15 Dose: 30 mg Ipratropium. 0.5 Mg 0.5 mg IH BIDRT [facility] Last Admin: 11/11/18 07:03 Dose: Not Given Metoprolol. 50 Mg 50 mg PO BID [facility] Last Admin: 11/11/18 08:14 Dose: 50 mg Orphenadrine. 100 Mg 100 mg PO BID PRN PRN Reason: Spasms Last Admin: 11/08/18 08:31 Dose: 100 mg Prednisone. 5 Mg 5 mg PO DAILY [facility] Last Admin: 11/11/18 08:12 Dose: 5 mg Simvastatin. 20 Mg 20 mg PO MOWEFR@2000 [facility] Last Admin: 11/09/18 20:46 Dose: 20 mg Omeprazole (Omeprazole) 20 mg PO DAILY@0700 [facility] Last Admin: 11/11/18 08:12 Dose: 20 mg Ondansetron HCl (Zofran Odt) 4 mg PO Q6H PRN PRN Reason: nausea, able to take PO Phytonadione (Vitamin K) 200 mcg PO DAILY [facility] Last Admin: 11/11/18 08:13 Dose: 200 mcg Sodium Chloride (Saline Flush) 10 ml FLUSH ASDIRECTED PRN PRN Reason: Keep Vein Open Last Admin: 11/09/18 20:46 Dose: 10 ml Discontinued Medications Acetaminophen (Tylenol Extra Strength) 500 mg PO TID [facility] Last Admin: 11/09/18 08:37 Dose: 500 mg Albuterol/Ipratropium (Duoneb 3.0-0.5 Mg/3 Ml) Confirm Administered Dose 3 ml .ROUTE .STK-MED ONE Stop: 11/11/18 10:30 Last Admin: 11/11/18 10:39 Dose: 3 ml Albuterol/Ipratropium (Duoneb 3.0-0.5 Mg/3 Ml) Confirm Administered Dose 3 ml .ROUTE .[facility] ONE Stop: 11/11/18 10:51 Omeprazole (Omeprazole) 20 mg PO DAILY@0700 [facility] Warfarin Sodium (Coumadin) 1.25 mg PO MoWeFr@0800 [facility]
== END 2018-11-11 16:30 | disposition expired | DRG 551 ==
LOC: VM.MS 13:45
PROVIDERS: ADMIT Internal Medicine; ATTEND Family Medicine
PROC: 5A09357 Assistance with Respiratory Ventilation, Less than 24 Consecutive Hours, Continuous Positive Airway Pressure (ICD-10-PCS; principal; 2018-11-11)
DX: S32.020A Wedge compression fracture of second lumbar vertebra, initial encounter for closed fracture (principal); J96.00 Acute respiratory failure, unspecified whether with hypoxia or hypercapnia; I13.0 Hypertensive heart and chronic kidney disease with heart failure and stage 1 through stage 4 chronic kidney disease, or unspecified chronic kidney disease; Z66 Do not resuscitate; N18.3 Chronic kidney disease, stage 3 (moderate); I48.0 Paroxysmal atrial fibrillation; I25.10 Atherosclerotic heart disease of native coronary artery without angina pectoris; I46.9 Cardiac arrest, cause unspecified; G89.29 Other chronic pain; W19.XXXA Unspecified fall, initial encounter; Y92.009 Unspecified place in unspecified non-institutional (private) residence as the place of occurrence of the external cause; I50.9 Heart failure, unspecified; J43.9 Emphysema, unspecified; E78.00 Pure hypercholesterolemia, unspecified; I73.9 Peripheral vascular disease, unspecified; K44.9 Diaphragmatic hernia without obstruction or gangrene; M06.9 Rheumatoid arthritis, unspecified; D64.9 Anemia, unspecified; Z79.01 Long term (current) use of anticoagulants; Z79.82 Long term (current) use of aspirin; Z79.899 Other long term (current) drug therapy; Z98.49 Cataract extraction status, unspecified eye; Z86.010 Personal history of colon polyps; Z85.038 Personal history of other malignant neoplasm of large intestine; Z85.51 Personal history of malignant neoplasm of bladder; Z85.528 Personal history of other malignant neoplasm of kidney; Z98.890 Other specified postprocedural states; Z88.6 Allergy status to analgesic agent; Z93.2 Ileostomy status; Z79.51 Long term (current) use of inhaled steroids; Z79.52 Long term (current) use of systemic steroids
CPT/HCPCS: 36415; 80053; 83735; 85025; 85610; 93005; 94640; 94760; 97161-GP; 97530-GP; 97535-GO; A9270-GY; J1650; J7620-GY